=== PATIENT | female | born 1930 | race Caucasian/White ===

== ENCOUNTER → 2016-10-10 | Outpatient (CLI) | payer BC ==
[~2016-10-10] MED LIST: BUPR100T8 PO; CHOL1TAB2 PO; CLOTLOT2 TOP; DICL1GEL28 TOP; DORZ2SOL20 OPR; FLUT0.15 NAE; FRS/40 PO; GABA-113 PO; IBUP-103 PO; LEVO25TA5 PO; LORA-741 PO; METO50TA16 PO; POTA20TA16 PO; PRLSR20 PO; TRAV0.00 OPB; TRIA0.1C20 TOP; ULT50X PO
[2016-10-10 17:34] LABS: BLOOD UREA NITROGEN 23 mg/dl (7-18); BUN/CREATININE RATIO 16.6 (10-20); CALCIUM 9.1 mg/dl (8.5-10.1); CARBON DIOXIDE 26 mmol/L (21-32); CHLORIDE 107 mmol/L (98-107); GLUCOSE 86 mg/dl (70-99); POTASSIUM 3.7 mmol/L (3.5-5.1); SODIUM 143 mmol/L (136-145)
== END | disposition home or self-care (01) ==
LOC: C.LABPVFM 10:53
PROVIDERS: ATTEND Nurse Practitioner
DX: I10 Essential (primary) hypertension (principal); N28.9 Disorder of kidney and ureter, unspecified; E03.9 Hypothyroidism, unspecified

== ENCOUNTER → 2016-12-19 | Day surgery (SDC) | payer BC ==
[2016-12-02 11:25] VITALS: Ht 152.4 cm; Wt 72.7 kg
[~2016-12-19] VITALS: Ht 152.4 cm; Wt 72.7 kg
[~2016-12-19] MED LIST changes: +500ML BSS 0.3ML EPI 1:1000PF IRRIG ONE; +ACETAMINOPHEN 325 MG TAB PO PRN; +AMVISC PLAIN 0.8ML SYRINGE INT OCU ONE; +AMVISC PLUS 0.8ML SYRINGE INT OCU ONE; +ATROPINE SULFATE 0.1 MG/ML 5ML SYR IV PRN; -CLOTLOT2 TOP; -DICL1GEL28 TOP; +EpHEDrine SULFATE INJ 50 MG/ML AMP IV PRN; +EpINEphrine INJ 1MG/ML AMP 1 MG/ML AMP ONE; +FENTANYL CITRATE INJ 50 MCG/1 ML 2 ML VIAL IV PRN; +FLUMAZENIL 0.1 MG/1 ML 10 ML VIAL IV PRN; +HYDROmorphone INJ 2 MG/ML SYR/VIAL IV PRN; +LABETALOL HCL IV 5 MG/ML 20ML IV PRN; +LACTATED RINGER'S 1000ML 500 ML IV SCH; +LIDOCAINE 3.5% OPH GEL PER APPLICATION CHARGE ONE; +LIDOCAINE HCL 1% MPF 2 ML VIAL ONE; +MEPERIDINE HCL 25 MG/ML CARP IV PRN; +MIDAZOLAM HCL 1 MG/ML 2ML VIAL ONE; +NALOXONE HCL 0.4 MG/1 ML VIAL/CARP IV PRN; +OCUCOAT 1 ML SOLN IO ONE; +ONDANSETRON INJ 2 MG/ML 2 ML VIAL IV PRN; +PHENYLEPHRINE 100MCG/ML 5ML SYR IV PRN; +POVIDONE-IODINE OP SOLN 30 ML BTL ONE; +PROPARACAINE 0.5% OP SOLN PER DROP CHARGE OPR SCH; +TOBRAMYCIN/DEXAMETHASONE OPH OINT PER APPLN CHARGE ONE; -TRIA0.1C20 TOP
[2016-12-19] MEDS: PHENYLEPHRINE HCL 2.5% OP SOLN PER DROP CHARGE OPR SCH ×2 (07:29→07:36)
[2016-12-19] MEDS: TROPICAMIDE 1% OP SOLN PER DROP CHARGE OPR SCH ×2 (07:30→07:37)
[2016-12-19] MEDS: CYCLOPENTOLATE HCL 1% OP SOLN PER DROP CHARGE OPR SCH ×2 (07:31→07:38)
[2016-12-19] MEDS: KETOROLAC 0.5% OP SOLN PER DROP CHARGE OPR SCH ×2 (07:32→07:39)
[2016-12-19] MEDS: GATIFLOXACIN OP SOLN PER DROP CHARGE OPR SCH ×2 (07:33→07:45)
--- NOTE | 2016-12-19 07:58 | History & Physical Bridge - [place] ---
H&P Re-Evaluation Bridge Note: I have examined the patient, reviewed the History & Physical and in the interval since the performance of the History & Physical I have noted the following changes of clinical significance: No changes noted
--- NOTE | 2016-12-19 08:47 | [facility] Operative Report ---
Operative Report Date of Service December 19, 2016. Operative Report 1. PREOPERATIVE DIAGNOSIS: Cataract of the right eye. 2. POSTOPERATIVE DIAGNOSIS: Same. 3. PROCEDURE: Phacoemulsification with intraocular lens implantation of the right eye. SURGEON: Dr. Sterling Lynch. ANESTHESIA: Topical Lidocaine gel, 1% Non- Preserved intracameral Lidocaine, and monitored intravenous sedation. INDICATIONS FOR THE PROCEDURE: The patient is a 86 - year-old female with a history of cataract of the right eye causing significant visual impairment. The details of the proposed procedure were explained to the patient who asked appropriate questions and following discussion of all risks, benefits and alternatives agreed to have the procedure done. 4. OPERATION AND FINDINGS: DESCRIPTION OF PROCEDURE: After informed consent was obtained, the patient was brought to the Operating Room at the [facility]. The patient was placed in a supine position and then the right eye was prepped and draped in the usual sterile fashion for intraocular surgery. A drop of topical Lidocaine gel was placed in the operative eye. A wire lid speculum was then placed in the fornices. A corneal paracentesis was then created temporally. The Non-Preserved Lidocaine was then instilled into the anterior chamber. The anterior chamber was then pressurized with viscoelastic. A 2.0 mm clear corneal incision was then created temporally. A cystotome was inserted into the anterior chamber and used to create a tear in the anterior lens capsule. This capsular tear was then used to create a small flap and the flap was dragged in a counterclockwise direction in order to create a continuous curvilinear capsulorrhexis. Hydrodissection was accomplished with balanced salt solution. Phacoemulsification of the lens nucleus was then performed in a standard [id number] technique. The phaco time was 39 seconds with an average power of 16 %. The remaining cortical material was removed using irrigation aspiration. The capsular bag was then filled with viscoelastic. A [employer] MI60L +21.0 diopters lens was then loaded into the injector and injected into the capsular bag. The remaining viscoelastic was removed with the irrigation aspiration handpiece. The wound was hydrated and then checked and found to be watertight. The intraocular pressure was checked and found to be adequate. The wire lid speculum was removed and the patient's face was cleaned and dried. TobraDex ointment was placed in the inferior fornix. The patient was discharged to the Recovery Room having tolerated the procedure well. There were no complications. The patient will be seen tomorrow in the office for follow-up. I attest to the content of the Intraoperative Record and any orders documented therein. Any exceptions are noted below.
--- NOTE | 2016-12-19 08:47 | Discharge Instructions-SurgCtr ---
Discharge Instructions Date of Service December 19, 2016. Visit Reason for Visit: Cataract Right Eye Discharge Discharge Diagnosis / Problem: cataract Discharge Goals Goal(s): Improve function Activity Recommendations Activity Limitations: per Instructions/Follow-up section Anesthesia . Post Anesthesia Instructions: If you have had General Anesthesia or IV Sedation: * Do not drive today. * Resume driving when surgeon permits. * Do not make important decisions or sign legal documents today. * Call surgeon for: 1. Temperature elevations greater than 101 degrees F. 2. Uncontrollable pain. 3. Excessive bleeding. 4. Persistent nausea and vomiting. 5. Medication intolerance (nausea, vomiting or rash). * For nausea and vomiting use only clear liquids such as: tea, soda, bouillon until nausea subsides, then gradually increase diet as tolerated. * If you have any concerns or questions, call your surgeon's office. If physician is unavailable and it is an emergency, call 911 or go to the nearest emergency room. . Instructions / Follow-Up Instructions / Follow-Up ACTIVITY RECOMMENDATIONS: * No strenuous lifting, jogging or running for 4 days * No swimming or yard work for 1 week. * Limited bending is permitted, such as putting on shoes. RETURN TO SCHOOL/WORK: No work until seen by physician in office. MEDICATIONS: Resume previous medications unless instructed otherwise by your surgeon. This includes eye drops for glaucoma. Zymaxid/Gatifloxacin (alvarado cap) - one drop every 2 hours until bedtime Nevanac/Ilevro/Prolensa/Ketorolac (goss cap) - one drop every 4 hours until bedtime Prednisolone (white/pink cap, SHAKE WELL) - one drop every 2 hours until bedtime Starting tomorrow - all 3 drops every 4 hours until seen in the office Optive drops - as needed for discomfort SPECIAL CARE INSTRUCTIONS: * Wear eyeshield when sleeping, for four nights. * You may wear your own glasses or sunglasses while awake. * You may read or watch TV * You may shower and wash your face, but be gentle around the eye and pat dry. * Blurry vision and mild irritation are normal. * Call office if pain is more severe or vision becomes dark at . FOLLOW UP VISIT: Follow-up with Dr Lynch tomorrow. Diet Recommendations Home Diet: resume previous diet Procedures Procedures Performed: Right Cataract Phacoemulsification With Intraocular Lens Implant Pending Studies Studies pending at discharge: no Medical Emergencies . Who to Call and When: Medical Emergencies: If at any time you feel your situation is an emergency, please call 911 immediately. . Non-Emergent Contact Non-Emergency issues call your: Drupal Developer . . "Provider Documentation" section prepared by Sterling Lynch. .
[2016-12-19 08:49] VITALS: TEMP 36.5
--- NOTE | 2016-12-19 09:04 | Anesthesia Progress Nt - [facility] ---
Anesthesia Post Op Note Date & Time December 19, 2016 at 09:05 Vital Signs Pain Intensity: 0 Vital Signs Past 12 Hours Date Time Temp Pulse Resp B/P Pulse Ox O2 Delivery O2 Flow Rate FiO2 12/19/16 08:49 36.5 60 16 137/84 98 Room Air 12/19/16 07:20 36.7 66 20 156/75 95 Room Air Notes Mental Status: alert / awake / arousable, participated in evaluation Pt Amnestic to Procedure: Yes Nausea / Vomiting: adequately controlled Pain: adequately controlled Airway Patency, RR, SpO2: stable & adequate BP & HR: stable & adequate Hydration State: stable & adequate Anesthetic Complications: no major complications apparent
[2016-12-19 09:06] VITALS: BP 140/84; PULSE 61; O2SAT 96
== END | disposition home or self-care (01) ==
LOC: X.SURG 07:04
PROVIDERS: ATTEND Ophthalmology
DX: H25.9 Unspecified age-related cataract (principal); I10 Essential (primary) hypertension; F41.9 Anxiety disorder, unspecified; K21.9 Gastro-esophageal reflux disease without esophagitis; E03.9 Hypothyroidism, unspecified; E55.9 Vitamin D deficiency, unspecified; F32.9 Major depressive disorder, single episode, unspecified; G62.9 Polyneuropathy, unspecified; R60.9 Edema, unspecified; Z79.899 Other long term (current) drug therapy

== ENCOUNTER 2017-02-23 14:24 | Observation (INO) | payer BC ==
[~2017-02-23] VITALS: Ht 152.4 cm; Wt 74.7 kg
[~2017-02-23 14:24] MED LIST changes: -500ML BSS 0.3ML EPI 1:1000PF IRRIG ONE; -ACETAMINOPHEN 325 MG TAB PO PRN; -AMVISC PLAIN 0.8ML SYRINGE INT OCU ONE; -AMVISC PLUS 0.8ML SYRINGE INT OCU ONE; -ATROPINE SULFATE 0.1 MG/ML 5ML SYR IV PRN; -EpHEDrine SULFATE INJ 50 MG/ML AMP IV PRN; -EpINEphrine INJ 1MG/ML AMP 1 MG/ML AMP ONE; -FENTANYL CITRATE INJ 50 MCG/1 ML 2 ML VIAL IV PRN; -FLUMAZENIL 0.1 MG/1 ML 10 ML VIAL IV PRN; -HYDROmorphone INJ 2 MG/ML SYR/VIAL IV PRN; -LABETALOL HCL IV 5 MG/ML 20ML IV PRN; -LACTATED RINGER'S 1000ML 500 ML IV SCH; -LIDOCAINE 3.5% OPH GEL PER APPLICATION CHARGE ONE; -LIDOCAINE HCL 1% MPF 2 ML VIAL ONE; -MEPERIDINE HCL 25 MG/ML CARP IV PRN; -MIDAZOLAM HCL 1 MG/ML 2ML VIAL ONE; -NALOXONE HCL 0.4 MG/1 ML VIAL/CARP IV PRN; -OCUCOAT 1 ML SOLN IO ONE; -ONDANSETRON INJ 2 MG/ML 2 ML VIAL IV PRN; -PHENYLEPHRINE 100MCG/ML 5ML SYR IV PRN; -POVIDONE-IODINE OP SOLN 30 ML BTL ONE; -PROPARACAINE 0.5% OP SOLN PER DROP CHARGE OPR SCH; -TOBRAMYCIN/DEXAMETHASONE OPH OINT PER APPLN CHARGE ONE; -ULT50X PO
[2017-02-23] MEDS ORDERED: KETOROLAC TROMETHAMINE 30 MG/ML VIAL IV STA (14:40)
--- NOTE | 2017-02-23 14:47 | EMERGENCY ROOM VISIT NOTE ---
History Report prepared by Itzel: Juan Jose Jeter Under the Supervision of: Dr. Darvin Tesfaye M.D. First contact with patient: 14:30 Stated Complaint: UPPER BACK PAIN History of Present Illness The patient is a 87 year old female who presents to the Emergency Room via EMS with complaints of back pain that began prior to arrival. She rates her pain a 10/10 in severity. Before her arrival to the ER, she was bending over to flower picker a bug off of the floor. She sat down on the ground and rolled back onto her radiator, striking her in the back. She was only on the floor for 15 minutes after that before EMS arrived. She denies any loss of consciousness, headache, fever, chest pain, shortness of breath, abdominal pain, diarrhea, or weakness. She felt at baseline prior to this incident. She is not on any blood thinners. She does not have any medical problems. Source of History: patient Onset: RN VASCULAR Position: back Symptom Intensity: 10/10 Quality: sharp Timing: constant Modifying Factors (Worsening): movement Associated Symptoms: No LOC, No fevers, No headache, No chest pain, No SOB, No abdominal pain, No diarrhea, No weakness Review of Systems See HPI for pertinent positives & negatives. A total of 10 systems reviewed and were otherwise negative. Past Medical & Surgical Medical Problems: (1) Gait abnormality (2) Lower back pain (3) No pertinent past medical history (4) omitted secondary to age Old medical records were reviewed. Nurse's notes were reviewed and I agree with. Family History Omitted secondary to age Social History Smoking Status: Never Smoker Smokeless Tobacco Use: No Alcohol Use: none Drug Use: none Marital Status: Housing Status: lives alone Occupation Status: retired Current/Historical Medications Scheduled Bupropion (Wellbutrin Sr), 100 MG PO BID Cholecalciferol (Vitamin D-3), 1,000 PO QAM Dorzolamide Hcl-Timolol Maleat (Cosopt Oph), 1 DROPS OPR BID Furosemide (Lasix), 40 MG PO DAILY Gabapentin (Neurontin), 300 MG PO BID Levothyroxine Sodium (Levothyroxine Sodium), 25 MCG PO QAM Metoprolol Tartrate (Lopressor) (Lopressor), 50 MG PO BID Potassium Ext Rel (Klor-Con), 20 MEQ PO Q2D Travoprost (Travatan Z), 1 DROP OPB HS Scheduled PRN Fluticasone Propionate (Nasal) (Flonase Allergy Relief), 1 SPRAY JENNIFER BID PRN for Allergy Symptoms Lorazepam (Ativan), 0.5 MG PO TID PRN for Anxiety Omeprazole (Prilosec), 20 MG PO DAILY PRN for Acid Reflux Allergies Coded Allergies: Codeine (Verified Adverse Reaction, Mild, NAUSEA VOMITING, 12/02/16) Erythromycin (Verified Adverse Reaction, Mild, N/V, 12/02/16) Physical Exam Vital Signs Date Time Temp Pulse Resp B/P (MAP) Pulse Ox O2 Delivery O2 Flow Rate FiO2 02/23/17 19:38 58 18 151/70 94 02/23/17 17:42 60 18 165/71 100 Nasal Cannula 2.0 02/23/17 17:10 94 Room Air 02/23/17 14:35 58 02/23/17 14:34 37.1 69 18 166/84 94 Room Air Physical Exam General: Well developed well nourished non-ill appearing older female in no acute distress, breathing comfortably on room air. Normal speech HEENT: Normal cephalic atraumatic. Pupils are equal round and reactive to light. Extraocular movements are intact. Oropharynx is pink with moist mucous membranes. No swelling of the mouth lips or tongue. Neck: Supple with a midline trachea. No meningeal signs or stiffness, no JVD or bruits. No Stridor. Chest: Clear to auscultation bilaterally. No wheezes or rhonchi. No increased work of breathing. Heart: regular rate and rhythm. Abdomen: Soft nontender, nondistended without rebound guarding or rigidity. Extremities: No cyanosis clubbing. No calf tenderness or assymetry. 1+ bilateral lower extremity edema. Abrasions on the right forearm. Spine/Back. Tenderness to the right flank. No CVA tenderness Skin: Good turgor without rashes. Neurologic exam: Cranial nerves two through 12 are intact. Motor and sensation are intact and symmetrical throughout. Medical Decision & Procedures ER Provider Diagnostic Interpretation: Radiology results as stated below per my review and radiologist interpretation: LUMBAR SPINE WITHOUT CT DOSE: 932.23 mGy.cm HISTORY: Trauma eval for trauma TECHNIQUE: Multiaxial CT images of the lumbar spine were performed and reformatted in the sagittal and coronal plane without the use of contrast. COMPARISON: MRI 09/08/2009 FINDINGS: Mild increase in compression of the L2 vertebral body compared to the prior exam. Posterior retropulsion of the posterior margin of the vertebral body has increased. Maximum AP dimension is 6 mm currently with the prior study 7.5 mm. Interval vertebral plasty. Loss of vertebral body height is now estimated approximately 75%. Remaining vertebral bodies appear similar. Grade 1 anterolisthesis of L4 and L5 is again noted with an associated vacuum disc. Posterior elements show degenerative change but are generally intact. IMPRESSION: 1. Somewhat progressive compression deformity of L2 compared to the prior study 2. Loss of vertebral body height is now estimated 75% increase from 50% on the prior study. 3. Interval vertebroplasty. 4. Increase in posterior displacement of the posterior margin of the L2 vertebral body with residual spinal canal lumen now measuring 6 mm diminished from the prior study of 7.5 mm The above report was generated using voice recognition software. It may contain grammatical, syntax or spelling errors. Electronically signed by: Michel Mann M.D. 02/23/2017 3:41 PM Dictated Date/Time: 02/23/2017 3:32 PM CHEST ONE VIEW PORTABLE CLINICAL HISTORY: CHEST PAIN dyspnea COMPARISON STUDY: 04/07/2015 FINDINGS: Moderate increase in cardiac size compared to the prior study. Components of congestive failure are present. Diaphragms are smooth. Considerable degenerative change of the right shoulder is again noted. IMPRESSION: Developing congestive heart failure The above report was generated using voice recognition software. It may contain grammatical, syntax or spelling errors. Electronically signed by: Michel Mann M.D. 02/23/2017 3:03 PM Dictated Date/Time: 02/23/2017 3:03 PM ABD/PELVIS NO IV OR ORAL CONT CT DOSE: HISTORY: Posterior back pain right flank pain s/p fall TECHNIQUE: Multiaxial CT images of the abdomen and pelvis were performed without contrast. COMPARISON STUDY: None FINDINGS: Minimal dependent basilar atelectasis bilaterally liver spleen and pancreas are unremarkable. There is a small fixed lateral hernia is multiple gallstones are present within the gallbladder lumen. Moderate cortical scarring of the kidneys bilaterally. Fatty replacement of the pancreas. The bowel pattern overall is nonobstructive. Bladder is midline. The appendix is normal. Degenerative change of the osseous structures are noted throughout. Compression deformity of L2 has shown mild progression compared to the prior study. IMPRESSION: 1. Moderate interval increase in compression of L2 which is described specifically in that report. 2. Gallstones. 3. Otherwise no acute process of the abdomen or pelvis. 4. Small hiatal hernia. The above report was generated using voice recognition software. It may contain grammatical, syntax or spelling errors. Electronically signed by: Michel Mann M.D. 02/23/2017 3:44 PM Dictated Date/Time: 02/23/2017 3:41 PM Laboratory Results 02/23/17 15:46 Red Blood Count 4.26, Mean Corpuscular Volume 82.6, Mean Corpuscular Hemoglobin 25.4, Mean Corpuscular Hemoglobin Concent 30.7, Mean Platelet Volume 10.1, Neutrophils (%) (Auto) 85.6, Lymphocytes (%) (Auto) 6.9, Monocytes (%) (Auto) 6.5, Eosinophils (%) (Auto) 0.0, Basophils (%) (Auto) 0.1, Neutrophils # (Auto) 11.00, Lymphocytes # (Auto) 0.88, Monocytes # (Auto) 0.83, Eosinophils # (Auto) 0.00, Basophils # (Auto) 0.01 02/23/17 17:30 Test 02/23/17 15:46 02/23/17 17:30 02/23/17 19:32 White Blood Count 12.83 K/uL (4.8-10.8) Red Blood Count 4.26 M/uL (4.2-5.4) Hemoglobin 10.8 g/dL (12.0-16.0) Hematocrit 35.2 % (37-47) Mean Corpuscular Volume 82.6 fL (80-100) Mean Corpuscular Hemoglobin 25.4 pg (25-34) Mean Corpuscular Hemoglobin Concent 30.7 g/dl (32-36) Platelet Count 215 K/uL (130-400) Mean Platelet Volume 10.1 fL (7.4-10.4) Neutrophils (%) (Auto) 85.6 % Lymphocytes (%) (Auto) 6.9 % Monocytes (%) (Auto) 6.5 % Eosinophils (%) (Auto) 0.0 % Basophils (%) (Auto) 0.1 % Neutrophils # (Auto) 11.00 K/uL (1.4-6.5) Lymphocytes # (Auto) 0.88 K/uL (1.2-3.4) Monocytes # (Auto) 0.83 K/uL (0.11-0.59) Eosinophils # (Auto) 0.00 K/uL (0-0.5) Basophils # (Auto) 0.01 K/uL (0-0.2) RDW Standard Deviation 51.3 fL (36.4-46.3) RDW Coefficient of Variation 17.2 % (11.5-14.5) Immature Granulocyte % (Auto) 0.9 % Immature Granulocyte # (Auto) 0.11 K/uL (0.00-0.02) Anion Gap 8.0 mmol/L (3-11) Est Creatinine Clear Calc Drug Dose 30.4 ml/min Estimated GFR () 47.4 Estimated GFR (Non- 40.9 BUN/Creatinine Ratio 26.8 (10-20) Calcium Level 9.1 mg/dl (8.5-10.1) Total Bilirubin 0.4 mg/dl (0.2-1) Direct Bilirubin 0.2 mg/dl (0-0.2) Aspartate Amino Transf (AST/SGOT) 17 U/L (15-37) Alanine Aminotransferase (ALT/SGPT) 19 U/L (12-78) Alkaline Phosphatase 68 U/L (45-117) Total Creatine Kinase 55 U/L (26-192) Creatine Kinase MB < 0.5 ng/ml (0.5-3.6) Creatine Kinase MB Ratio (0-3.0) Total Protein 6.3 gm/dl (6.4-8.2) Albumin 2.8 gm/dl (3.4-5.0) Lipase 80 U/L (73-393) Laboratory studies as stated above per my review. Medications Administered Medications (Trade) Dose Ordered Sig/Zulema Route Start Time Stop Time Status Last Admin Dose Admin Ketorolac Tromethamine (Toradol Inj) 15 mg NOW STAT IV 02/23/17 14:40 02/23/17 14:44 DC 02/23/17 15:52 15 MG Morphine Sulfate (MoRPHine SULFATE INJ) 2 mg NOW STAT IV 02/23/17 16:11 02/23/17 16:13 DC 02/23/17 16:27 2 MG Ondansetron HCl (Zofran Inj) 4 mg NOW STAT IV 02/23/17 16:11 02/23/17 16:13 DC 02/23/17 16:27 4 MG ED Course 1430: Past medical records reviewed. The patient was evaluated in room A3, and a complete history and physical examination were performed. 1440: Ordered Toradol Inj 15 mg IV 1606: The patient is still having back pain. I will order her more pain medication. 1611: Ordered Zofran Inj 4 mg IV, Morphine Sulfate 2 mg IV 1635: Upon reevaluation, the patient is resting. I discussed the results and treatment plan with the patient. She verbalized agreement of the treatment plan. The patient will be evaluated by Dr. Ventura - [facility] [place], for further management. Medical Decision Differentials include, but are not limited to; traumatic injuries, arrhythmia, rhabdomyolysis, and electrolyte or metabolic abnormality. Medication Reconciliation: I attest that I have personally reviewed the patient' s current medication list. Blood pressure Screening: Patient was found to have normal blood pressure on screening and does not require follow-up. This patient comes in as described above she had a mechanical fall today. She injured her right lateral back/flank. She said she sat down and leaned up against a radiator for about 15 minutes. It was not on. She denies any syncope or head trauma, chest pain, or shortness of breath. She does live by herself and seems a lot of pain with movement. IV access established was ordered Toradol 15 mg IV. Blood work was obtained as well as an EKG. I did chest x-ray as well as CAT scan of her abdomen pelvis and back. She was reassessed frequently. She did require additional pain medication was given morphine IV and Zofran IV. CAT scan of her abdomen and back do reveal a compression fracture that looks worse than previous on L2 there is some retropulsion. She has no neurologic deficits on exam and her chest x-ray suggests congestive heart failure and she does have some peripheral edema. She does take Lasix but did not take it today. She has no shortness of breath clinically. She lives by herself and is unable to ambulate like this. I do think she needs to be admitted for pain management and further treatment and evaluation. I have consulted Dr. Jenkins and he saw her in the emergency department. Consults Time Called: [phone] Consulting Physician: Dr. Lorenzo MORELANDG Returned Call: [phone] He will be evaluating the patient for further management and care. Impression Primary Impression: Back pain Additional Impressions: Compression fracture of L2 CHF (congestive heart failure) Scribe Attestation The scribe's documentation has been prepared under my direction and personally reviewed by me in its entirety. I confirm that the note above accurately reflects all work, treatment, procedures, and medical decision making performed by me. Departure Information Dispostion Being Evaluated By Hospitalist Referrals Alecia Garcia C.R.N.P (PCP) Problem Qualifiers
--- NOTE | 2017-02-23 15:04 | DIAGNOSTIC IMAGING REPORT ---
CHEST ONE VIEW PORTABLE CLINICAL HISTORY: CHEST PAIN dyspnea COMPARISON STUDY: 04/07/2015 FINDINGS: Moderate increase in cardiac size compared to the prior study. Components of congestive failure are present. Diaphragms are smooth. Considerable degenerative change of the right shoulder is again noted. IMPRESSION: Developing congestive heart failure The above report was generated using voice recognition software. It may contain grammatical, syntax or spelling errors. Electronically signed by: Michel Mann M.D. 02/23/2017 3:03 PM Dictated Date/Time: 02/23/2017 3:03 PM
--- NOTE | 2017-02-23 15:42 | DIAGNOSTIC IMAGING REPORT ---
LUMBAR SPINE WITHOUT CT DOSE: 932.23 mGy.cm HISTORY: Trauma eval for trauma TECHNIQUE: Multiaxial CT images of the lumbar spine were performed and reformatted in the sagittal and coronal plane without the use of contrast. COMPARISON: MRI 09/08/2009 FINDINGS: Mild increase in compression of the L2 vertebral body compared to the prior exam. Posterior retropulsion of the posterior margin of the vertebral body has increased. Maximum AP dimension is 6 mm currently with the prior study 7.5 mm. Interval vertebral plasty. Loss of vertebral body height is now estimated approximately 75%. Remaining vertebral bodies appear similar. Grade 1 anterolisthesis of L4 and L5 is again noted with an associated vacuum disc. Posterior elements show degenerative change but are generally intact. IMPRESSION: 1. Somewhat progressive compression deformity of L2 compared to the prior study 2. Loss of vertebral body height is now estimated 75% increase from 50% on the prior study. 3. Interval vertebroplasty. 4. Increase in posterior displacement of the posterior margin of the L2 vertebral body with residual spinal canal lumen now measuring 6 mm diminished from the prior study of 7.5 mm The above report was generated using voice recognition software. It may contain grammatical, syntax or spelling errors. Electronically signed by: Michel Mann M.D. 02/23/2017 3:41 PM Dictated Date/Time: 02/23/2017 3:32 PM
--- NOTE | 2017-02-23 15:45 | DIAGNOSTIC IMAGING REPORT ---
ABD/PELVIS NO IV OR ORAL CONT CT DOSE: HISTORY: Posterior back pain right flank pain s/p fall TECHNIQUE: Multiaxial CT images of the abdomen and pelvis were performed without contrast. COMPARISON STUDY: None FINDINGS: Minimal dependent basilar atelectasis bilaterally liver spleen and pancreas are unremarkable. There is a small fixed lateral hernia is multiple gallstones are present within the gallbladder lumen. Moderate cortical scarring of the kidneys bilaterally. Fatty replacement of the pancreas. The bowel pattern overall is nonobstructive. Bladder is midline. The appendix is normal. Degenerative change of the osseous structures are noted throughout. Compression deformity of L2 has shown mild progression compared to the prior study. IMPRESSION: 1. Moderate interval increase in compression of L2 which is described specifically in that report. 2. Gallstones. 3. Otherwise no acute process of the abdomen or pelvis. 4. Small hiatal hernia. The above report was generated using voice recognition software. It may contain grammatical, syntax or spelling errors. Electronically signed by: Michel Mann M.D. 02/23/2017 3:44 PM Dictated Date/Time: 02/23/2017 3:41 PM
[2017-02-23 16:02] LABS: BASO % 0.1 %; BASO ABS # 0.01 K/uL (0-0.2); COMPLETE YES; HEMATOCRIT 35.2 % (37-47); IG% 0.9 %; LYMPH % 6.9 %; LYMPH ABS # 0.88 K/uL (1.2-3.4); MEAN CELL VOLUME 82.6 fL (80-100); MEAN CORPUSCULAR HEMOGLOBIN 25.4 pg (25-34); MEAN CORPUSCULAR HGB CONC 30.7 g/dl (32-36); MEAN PLATELET VOLUME 10.1 fL (7.4-10.4); MONO % 6.5 %; NEUT % 85.6 %; PLATELET COUNT 215 K/uL (130-400); RED BLOOD COUNT 4.26 M/uL (4.2-5.4); WHITE BLOOD COUNT 12.83 K/uL (4.8-10.8)
[2017-02-23] MEDS ORDERED: MoRPHine SULFATE 2 MG/ML CARP IV STA (16:11)
[2017-02-23] MEDS ORDERED: ONDANSETRON INJ 2 MG/ML 2 ML VIAL IV STA (16:11)
[2017-02-23 17:10] VITALS: O2SAT 94; Ht 152.4 cm; Wt 74.7 kg
[2017-02-23 18:10] LABS: ALKALINE PHOSPHATASE 68 U/L (45-117); ALT/SGPT 19 U/L (12-78); AST/SGOT 17 U/L (15-37); BLOOD UREA NITROGEN 32 mg/dl (7-18); BUN/CREATININE RATIO 26.8 (10-20); CALCIUM 9.1 mg/dl (8.5-10.1); CARBON DIOXIDE 28 mmol/L (21-32); CHLORIDE 107 mmol/L (98-107); GLUCOSE 77 mg/dl (70-99); POTASSIUM 3.7 mmol/L (3.5-5.1); SODIUM 143 mmol/L (136-145)
[2017-02-23] MEDS ORDERED: POLYETHYLENE (MIRALAX) 17 GM PACK PO PRN (18:15)
[2017-02-23] MEDS ORDERED: MAGNESIUM HYDROXIDE SUSP 30 ML UDC PO PRN (18:15)
[2017-02-23] MEDS ORDERED: FLUTICASONE PROPIONATE NA SPR 16 GM BTL NAE PRN (18:15)
[2017-02-23] MEDS ORDERED: PANTOprazole SOD 40 MG TAB PO PRN (18:15)
[2017-02-23] MEDS ORDERED: ACETAMINOPHEN 325 MG TAB PO PRN (18:15)
[2017-02-23] MEDS ORDERED: ONDANSETRON INJ 2 MG/ML 2 ML VIAL IV PRN (18:15)
[2017-02-23] MEDS ORDERED: ALUMINUM/MAGNESIUM/SIMETH (MAALOX MAX) 30 ML UDC PO PRN (18:15)
--- NOTE | 2017-02-23 18:46 | History and Physical ---
History & Physical Date & Time of Service: Feb 23, 2017 at 18:05 Chief Complaint: Upper Back Pain Primary Care Physician: Alecia Garcia C.R.N.P History of Present Illness Source: patient 87 y/o F Hx osteoarthritis, CHF, HTN. Pt fell on her backside today, could not get up and proceeded to alert EMS. On arrival to the ER, she was unable to ambulate independently. Her lower back pain persists and a lumbar CT reveals worsening of a chronic compression fracture at L2. She denies any head trauma or additional symptoms preceding her fall such as CP, SOB, palpitations and lightheadedness. She states that this past Friday she had been to see her orthopedist who administered injections - possibly steroids - into her shoulder joints bilaterally. Past Medical/Surgical History 1) CHF - no specifics available 2) HTN 3) Depression/anxiety 4) Severe osteoarthritis 5) Glaucoma 6) GERD Surgical TKR 2002 Cataract 12/25 Family History Omitted secondary to age Social History Smoking Status: Never Smoker Smokeless Tobacco Use: No Drug Use: none Marital Status: Housing status: lives with family Occupational Status: retired Immunizations History of Influenza Vaccine: Yes Influenza Vaccine Date: May 18, 2009 History of Tetanus Vaccine?: Unknown History of Pneumococcal: Yes History of Hepatitis B Vaccine: No Multi-Drug Resistant Organisms History of MDRO: No Allergies Coded Allergies: Codeine (Verified Adverse Reaction, Mild, NAUSEA VOMITING, 12/02/16) Erythromycin (Verified Adverse Reaction, Mild, N/V, 12/02/16) Home Medications Scheduled Bupropion (Wellbutrin Sr), 100 MG PO BID Cholecalciferol (Vitamin D-3), 1,000 PO QAM Dorzolamide Hcl-Timolol Maleat (Cosopt Oph), 1 DROPS OPR BID Furosemide (Lasix), 40 MG PO DAILY Gabapentin (Neurontin), 300 MG PO BID Levothyroxine Sodium (Levothyroxine Sodium), 25 MCG PO QAM Metoprolol Tartrate (Lopressor) (Lopressor), 50 MG PO BID Potassium Ext Rel (Klor-Con), 20 MEQ PO Q2D Travoprost (Travatan Z), 1 DROP OPB HS Scheduled PRN Fluticasone Propionate (Nasal) (Flonase Allergy Relief), 1 SPRAY JENNIFER BID PRN for Allergy Symptoms Lorazepam (Ativan), 0.5 MG PO TID PRN for Anxiety Omeprazole (Prilosec), 20 MG PO DAILY PRN for Acid Reflux Review of Systems Constitutional: No fever, No chills, No sweats Eyes: No worsening of vision ENT: No hearing loss, No unusual epistaxis, No nasal symptoms Respiratory: No cough, No sputum, No wheezing Cardiovascular: No chest pain, No orthopnea, No PND Abdomen: No pain, No nausea, No vomiting Musculoskeletal: + problem reported (moderate to severe LBP with ambulation), No joint pain Genitourinary - Female: No dysuria, No urinary frequency, No urinary urgency Neurologic: No memory loss, No paralysis, No weakness Psychiatric: No depression symptoms Endocrine: No fatigue Integumentary: No rash Allergic / Immunologic: No environmental allergies Physical Exam Vital Signs Date Time Temp Pulse Resp B/P (MAP) Pulse Ox O2 Delivery O2 Flow Rate FiO2 02/23/17 17:42 60 18 165/71 100 Nasal Cannula 2.0 02/23/17 17:10 94 Room Air 02/23/17 14:35 58 02/23/17 14:34 37.1 69 18 166/84 94 Room Air General Appearance: WD/WN, no apparent distress Head: normocephalic Eyes: normal inspection ENT: + pertinent finding (Very poor dentition) Neck: supple, no JVD Respiratory/Chest: chest non-tender, lungs clear, normal breath sounds Cardiovascular: regular rate, rhythm, no gallop, no JVD, + systolic murmur (3/6 ) Abdomen/GI: normal bowel sounds, non tender, soft Back: + pertinent finding (Severe kyphosis) Extremities/Musculoskelatal: + pedal edema, + pertinent finding (moderate to sevevre osteoarthritic deformaties distally) Neurologic/Psych: tie worker II-XII nml as tested, no motor/sensory deficits, alert, + pertinent finding (AAO x 2) Skin: normal color, warm/dry, no rash Diagnostics Laboratory Results Results Past 24 Hours Test 02/23/17 14:40 02/23/17 15:46 02/23/17 17:30 Range/Units Creatine Kinase MB Ratio 0-3.0 White Blood Count 12.83 4.8-10.8 K/uL Red Blood Count 4.26 4.2-5.4 M/uL Hemoglobin 10.8 12.0-16.0 g/dL Hematocrit 35.2 37-47 % Mean Corpuscular Volume 82.6 80-100 fL Mean Corpuscular Hemoglobin 25.4 25-34 pg Mean Corpuscular Hemoglobin Concent 30.7 32-36 g/dl Platelet Count 215 130-400 K/uL Mean Platelet Volume 10.1 7.4-10.4 fL Neutrophils (%) (Auto) 85.6 % Lymphocytes (%) (Auto) 6.9 % Monocytes (%) (Auto) 6.5 % Eosinophils (%) (Auto) 0.0 % Basophils (%) (Auto) 0.1 % Neutrophils # (Auto) 11.00 1.4-6.5 K/uL Lymphocytes # (Auto) 0.88 1.2-3.4 K/uL Monocytes # (Auto) 0.83 0.11-0.59 K/uL Eosinophils # (Auto) 0.00 0-0.5 K/uL Basophils # (Auto) 0.01 0-0.2 K/uL RDW Standard Deviation 51.3 36.4-46.3 fL RDW Coefficient of Variation 17.2 11.5-14.5 % Immature Granulocyte % (Auto) 0.9 % Immature Granulocyte # (Auto) 0.11 0.00-0.02 K/uL Diagnostic Radiology CT 1. Moderate interval increase in compression of L2 which is described specifically in that report. 2. Gallstones. Impression Assessment and Plan 87 y/o F Hx osteoarthritis, CHF, HTN. Pt fell on her backside today, could not get up and proceeded to alert EMS. On arrival to the ER, she was unable to ambulate independently. Her lower back pain persists and a lumbar CT reveals worsening of a chronic compression fracture at L2. 1) Back pain with ambulatory dysfunction - the pt lives alone and cannot now function independently. We will have her evaluated by her orthopedist in addition to PT/OT as she may need transfer to acute rehab. She does not have significant pain unless she attempts to mobilize. 2) CHF - severe lower extremity edema - she takes Lasix PRN only so that we will start her on a scheduled dose. She may not tolerate wrapping and elevation although this can be done with assistance at a facility. 3) Hypothyroidism - cont Synthroid 4) HTN - cont Metoprolol Majority of labs and UA pending at time of admission Full code - Heparin prophylaxis Total time for this admit including review of labs, meds, imaging, records - discussion with pt and ER attending - 33 min Level of Care Med/Surg Advanced Directives Existing Living Will: Yes Existing Power of Gauge Operator: Yes Resuscitation Status FULL RESUSCITATION VTE Prophylaxis Given or contraindicated: Unfractionated heparin SQ
[2017-02-23] MEDS ORDERED: IV FLUIDS COMPLETED PRN (19:15)
[2017-02-23 19:45] VITALS: BP 151/67; PULSE 57; TEMP 37; O2SAT 92
[2017-02-23 19:50] LABS: PROTHROMBIN TIME (PATIENT) 10.5 SECONDS (9.0-12.0)
[2017-02-23] MEDS ORDERED: POTASSIUM CHLORIDE 20 MEQ TABCR PO SCH (20:00)
[2017-02-23 20:44] LABS: MANUAL MICROSCOPIC REQUIRED? NO; REVIEW REQ? NO; URINE APPEARANCE CLEAR (CLEAR); URINE BILIRUBIN NEG (NEG); URINE COLOR YELLOW; URINE EPITHELIAL CELL AUTO 20-30 /lpf (0-5); URINE NITRITE NEG (NEG); URINE PH 6.5 (4.5-7.5); URINE SPECIFIC GRAVITY 1.013 (1.000-1.030); UROBILINOGEN NEG (NEG)
[2017-02-23] MEDS: TRAVOPROST Z 0.004% OPH SOLN 2.5 ML BTL OPB SCH (20:44)
[2017-02-23] MEDS: DORZOLAMIDE/TIMOLOL 22.3/6.8MG/ML 10 ML BTL OPR SCH ×2 (20:45→21:00)
[2017-02-23] MEDS: BuPROPion SR 100 MG TABCR PO SCH (20:48)
[2017-02-23] MEDS: METOPROLOL TARTRATE 50 MG TAB PO SCH (20:48)
[2017-02-23] MEDS: GABAPENTIN 300 MG CAP PO SCH (20:48)
[2017-02-23] MEDS: HEPARIN SOD 5000 UNIT/0.5 ML CARP SQ SCH (21:45)
[2017-02-23] MEDS: TRAMADOL HCL 50 MG TAB PO PRN (21:56)
[2017-02-23] MEDS ORDERED: NYSTATIN POWDER 15GM BTL EXT ONE (22:07)
[2017-02-23 22:44] VITALS: BP 123/74; PULSE 56; TEMP 36.5; O2SAT 95
[2017-02-24] VITALS (8 sets, daily range): BP systolic 96–136; BP diastolic 65–83; PULSE 57–84; TEMP 36.3–36.7; O2SAT 89–99
[2017-02-24] MEDS: LEVOTHYROXINE 25 MCG TAB PO SCH (05:34)
[2017-02-24] MEDS: HEPARIN SOD 5000 UNIT/0.5 ML CARP SQ SCH ×3 (05:34→21:44)
[2017-02-24] MEDS: METOPROLOL TARTRATE 50 MG TAB PO SCH ×2 (09:00→20:36)
[2017-02-24] MEDS: CHOLECALCIFEROL 1000 INTER.UNIT TAB PO SCH (09:21)
[2017-02-24] MEDS: BuPROPion SR 100 MG TABCR PO SCH ×2 (09:21→20:35)
[2017-02-24] MEDS: GABAPENTIN 300 MG CAP PO SCH ×2 (09:21→20:35)
[2017-02-24] MEDS: FUROSEMIDE 40 MG TAB PO SCH (09:22)
[2017-02-24] MEDS: DORZOLAMIDE/TIMOLOL 22.3/6.8MG/ML 10 ML BTL OPR SCH ×2 (09:23→20:35)
[2017-02-24] MEDS: TRAMADOL HCL 50 MG TAB PO PRN ×2 (09:23→13:52)
[2017-02-24] MEDS: NYSTATIN POWDER 15GM BTL EXT SCH ×4 (09:23→20:33)
--- NOTE | 2017-02-24 12:20 | Orthopedic Consultation ---
Orthopedic Consultation Date of Consultation: Feb 24, 2017. Attending Physician: Franko Tom MD Reason for Consultation: Lower back pain status post fall and inability to ambulate. History of Present Illness This is a pleasant 87-year-old female who sustained a fall yesterday at her home. She normally ambulates with a walker. He was unable to get up on her own therefore called EMS and was transported to the emergency room for further evaluation. Upon examination today she denies radicular leg pain. She notes her chronic back pain. This reproduces all positions including standing, sitting, rolling over. She is most comfortable lying supine. Denies bowel or bladder changes. She reports she has had prior vertebral plasty by Dr. Clements 10+ years ago. Past Medical/Surgical History Medical Problems: (1) Back pain Status: Acute (2) CHF (congestive heart failure) Status: Acute (3) Compression fracture of L2 Status: Acute Family History Omitted secondary to age Social History Smoking Status: Never Smoker Smokeless Tobacco Use: No Drug Use: none Marital Status: Housing Status: lives alone Occupation Status: retired Allergies Coded Allergies: Codeine (Verified Adverse Reaction, Mild, NAUSEA VOMITING, 12/02/16) Erythromycin (Verified Adverse Reaction, Mild, N/V, 12/02/16) Home Medications Scheduled Bupropion (Wellbutrin Sr), 100 MG PO BID Cholecalciferol (Vitamin D-3), 1,000 PO QAM Dorzolamide Hcl-Timolol Maleat (Cosopt Oph), 1 DROPS OPR BID Furosemide (Lasix), 40 MG PO DAILY Gabapentin (Neurontin), 300 MG PO BID Levothyroxine Sodium (Levothyroxine Sodium), 25 MCG PO QAM Metoprolol Tartrate (Lopressor) (Lopressor), 50 MG PO BID Potassium Ext Rel (Klor-Con), 20 MEQ PO Q2D Travoprost (Travatan Z), 1 DROP OPB HS Scheduled PRN Fluticasone Propionate (Nasal) (Flonase Allergy Relief), 1 SPRAY JENNIFER BID PRN for Allergy Symptoms Lorazepam (Ativan), 0.5 MG PO TID PRN for Anxiety Omeprazole (Prilosec), 20 MG PO DAILY PRN for Acid Reflux Current Inpatient Medications Current Inpatient Medications Medications (Trade) Dose Ordered Sig/Zulema Route Start Time Stop Time Status Last Admin Dose Admin Bupropion HCl (Wellbutrin-Sr Tab) 100 mg BID PO 02/23/17 21:00 03/25/17 20:59 02/24/17 09:21 100 MG Cholecalciferol (Vitamin D Tab) 1,000 inter.unit QAM PO 02/24/17 09:00 03/26/17 08:59 02/24/17 09:21 1,000 INTER.UNIT Dorzolamide/ Timolol (Cosopt Op Soln) 1 drops BID OPR 02/23/17 21:00 03/25/17 20:59 02/24/17 09:23 1 DROPS Fluticasone Propionate (Flonase Nasal [place]) 1 sprays BID PRN JENNIFER 02/23/17 18:15 03/25/17 18:14 Furosemide (Lasix Tab) 40 mg DAILY PO 02/24/17 09:00 03/26/17 08:59 02/24/17 09:22 40 MG Gabapentin (Neurontin Cap) 300 mg BID PO 02/23/17 21:00 03/25/17 20:59 02/24/17 09:21 300 MG Levothyroxine Sodium (Synthroid Tab) 25 mcg DAILYBB PO 02/24/17 06:00 03/26/17 06:59 02/24/17 05:34 25 MCG Lorazepam (Ativan Tab) 0.5 mg TID PRN PO 02/23/17 18:15 03/25/17 18:14 Metoprolol Tartrate (Lopressor Tab) 50 mg BID PO 02/23/17 21:00 03/25/17 20:59 02/23/17 20:48 50 MG Potassium Chloride (Klor-Con Tab) 20 meq Q2D@0900 PO 02/23/17 20:00 03/25/17 19:59 02/23/17 20:44 20 MEQ Travoprost (Travatan Z) 1 drops HS OPB 02/23/17 21:00 03/25/17 20:59 02/23/17 20:44 1 DROPS Pantoprazole Sodium (Protonix Tab) 40 mg DAILY PRN PO 02/23/17 18:15 03/25/17 18:14 Heparin Sodium (Porcine) (Heparin Sq 5000 Unit/0.5ml) 5,000 unit Q8 SQ 02/23/17 22:00 03/25/17 21:59 02/24/17 05:34 5,000 UNIT Acetaminophen (Tylenol Tab) 650 mg Q4H PRN PO 02/23/17 18:15 03/25/17 18:14 Al Hydrox/Mg Hydrox/Simethicone (Maalox Max Susp) 15 ml Q4H PRN PO 02/23/17 18:15 03/25/17 18:14 Magnesium Hydroxide (Milk Of Magnesia Susp) 30 ml Q6H PRN PO 02/23/17 18:15 03/25/17 18:14 Polyethylene (Miralax Powder Packet) 17 gm DAILY PRN PO 02/23/17 18:15 03/25/17 18:14 Ondansetron HCl (Zofran Inj) 4 mg Q6H PRN IV 02/23/17 18:15 03/25/17 18:14 Tramadol HCl (Ultram Tab) 50 mg Q4H PRN PO 02/23/17 18:45 03/25/17 18:44 02/24/17 09:23 50 MG Miscellaneous (Iv Fluids Completed) 1 ea PRN PRN N/A 02/23/17 19:15 02/23/18 19:14 Nystatin (Mycostatin Powder) 1 appln QID EXT 02/24/17 09:00 03/26/17 08:59 02/24/17 09:23 1 APPLN Physical Exam Date Time Temp Pulse Resp B/P (MAP) Pulse Ox O2 Delivery O2 Flow Rate FiO2 02/24/17 09:20 57 127/67 (87) 02/24/17 07:35 Nasal Cannula 2.0 02/24/17 07:05 36.6 61 16 108/68 (81) 97 Nasal Cannula 2.0 02/24/17 05:48 89 Room Air 02/24/17 05:48 97 Nasal Cannula 2.0 02/23/17 23:35 Nasal Cannula 2.0 02/23/17 22:44 36.5 56 16 123/74 (90) 95 Nasal Cannula 2.0 02/23/17 19:45 37.0 57 18 151/67 (95) 92 Nasal Cannula 2.0 02/23/17 19:45 Nasal Cannula 2.0 02/23/17 19:38 58 18 151/70 94 02/23/17 17:42 60 18 165/71 100 Nasal Cannula 2.0 02/23/17 17:10 94 Room Air 02/23/17 14:35 58 02/23/17 14:34 37.1 69 18 166/84 94 Room Air Muscle skeletal. She is unable to roll over in bed for me so I may examine her back. She is neurologically intact bilateral lower extremities. Negative [place]. Negative tension signs. In no obvious distress lying in bed. Laboratory Results Last 24 Hours Test 02/23/17 14:40 02/23/17 15:46 02/23/17 17:30 02/23/17 19:32 Creatine Kinase MB Ratio White Blood Count 12.83 K/uL Red Blood Count 4.26 M/uL Hemoglobin 10.8 g/dL Hematocrit 35.2 % Mean Corpuscular Volume 82.6 fL Mean Corpuscular Hemoglobin 25.4 pg Mean Corpuscular Hemoglobin Concent 30.7 g/dl Platelet Count 215 K/uL Mean Platelet Volume 10.1 fL Neutrophils (%) (Auto) 85.6 % Lymphocytes (%) (Auto) 6.9 % Monocytes (%) (Auto) 6.5 % Eosinophils (%) (Auto) 0.0 % Basophils (%) (Auto) 0.1 % Neutrophils # (Auto) 11.00 K/uL Lymphocytes # (Auto) 0.88 K/uL Monocytes # (Auto) 0.83 K/uL Eosinophils # (Auto) 0.00 K/uL Basophils # (Auto) 0.01 K/uL RDW Standard Deviation 51.3 fL RDW Coefficient of Variation 17.2 % Immature Granulocyte % (Auto) 0.9 % Immature Granulocyte # (Auto) 0.11 K/uL Sodium Level 143 mmol/L Potassium Level 3.7 mmol/L Chloride Level 107 mmol/L Carbon Dioxide Level 28 mmol/L Anion Gap 8.0 mmol/L Blood Urea Nitrogen 32 mg/dl Creatinine 1.20 mg/dl Est Creatinine Clear Calc Drug Dose 30.4 ml/min Estimated GFR () 47.4 Estimated GFR (Non- 40.9 BUN/Creatinine Ratio 26.8 Random Glucose 77 mg/dl Calcium Level 9.1 mg/dl Total Bilirubin 0.4 mg/dl Direct Bilirubin 0.2 mg/dl Aspartate Amino Transf (AST/SGOT) 17 U/L Alanine Aminotransferase (ALT/SGPT) 19 U/L Alkaline Phosphatase 68 U/L Total Creatine Kinase 55 U/L Creatine Kinase MB < 0.5 ng/ml Total Protein 6.3 gm/dl Albumin 2.8 gm/dl Lipase 80 U/L Prothrombin Time 10.5 SECONDS Prothromb Time International Ratio 1.0 Test 02/23/17 20:30 Urine Color YELLOW Urine Appearance CLEAR Urine pH 6.5 Urine Specific [place] 1.013 Urine Protein NEG Urine Glucose (UA) NEG Urine Ketones NEG Urine Occult Blood NEG Urine Nitrite NEG Urine Bilirubin NEG Urine Urobilinogen NEG Urine Leukocyte Esterase TRACE Urine WBC (Auto) 1-5 /hpf Urine RBC (Auto) 0-4 /hpf Urine Hyaline Casts (Auto) 0 /lpf Urine Epithelial Cells (Auto) 20-30 /lpf Urine Bacteria (Auto) NEG Patient Name: DARIUS CEJA Unit Number: [id number] Dictated: 02/23/[id number] Transcribed: 02/23/17 1532 MS Printed Date/Time: [~ rep prt dt]/[~ rep prt tm] [~ rep ct labl] - [~ rep ct ivnm] [facility] Radiology Department [place], [place] [id number] Dictated: 02/23/17 1532 Transcribed: 02/23/17 1532 MS Printed Date/Time: [~ rep prt dt]/[~ rep prt tm] [~ rep ct labl] - [~ rep ct ivnm] [~ rep ct add3]] LUMBAR SPINE WITHOUT CT DOSE: 932.23 mGy.cm HISTORY: Trauma eval for trauma TECHNIQUE: Multiaxial CT images of the lumbar spine were performed and reformatted in the sagittal and coronal plane without the use of contrast. COMPARISON: MRI 09/08/2009 FINDINGS: Mild increase in compression of the L2 vertebral body compared to the prior exam. Posterior retropulsion of the posterior margin of the vertebral body has increased. Maximum AP dimension is 6 mm currently with the prior study 7.5 mm. Interval vertebral plasty. Loss of vertebral body height is now estimated approximately 75%. Remaining vertebral bodies appear similar. Grade 1 anterolisthesis of L4 and L5 is again noted with an associated vacuum disc. Posterior elements show degenerative change but are generally intact. IMPRESSION: 1. Somewhat progressive compression deformity of L2 compared to the prior study 2. Loss of vertebral body height is now estimated 75% increase from 50% on the prior study. 3. Interval vertebroplasty. 4. Increase in posterior displacement of the posterior margin of the L2 vertebral body with residual spinal canal lumen now measuring 6 mm diminished from the prior study of 7.5 mm The above report was generated using voice recognition software. It may contain grammatical, syntax or spelling errors. Electronically signed by: Michel Mann M.D. 02/23/2017 3:41 PM Dictated Date/Time: 02/23/2017 3:32 PM The status of this report is Signed. Draft = Not yet reviewed or approved by Radiologist. Signed = Reviewed and approved by Radiologist. <AttendingPhy></AttendingPhy> <FamilyPhy>Alecia Garcia C.RColtonNColtonP</FamilyPhy> < PrimaryPhy>Alecia Garcia C.R.N.P</PrimaryPhy> <UnitNumber>[id number]</ UnitNumber> <VisitNumber>[id number]</VisitNumber> <PatientName>ROBCLAUDIA DARIUS Dennison</PatientName> <DateOfBirth>1930</DateOfBirth> <Location>[facility]< /Location> <ServiceDate>02/23/17</ServiceDate> <MNE>ESINDI</MNE> <OrderingPhy> Darvin Tesfaye M.D.</OrderingPhy> <OrderingPhyMNE>f rep ord dr ferrer</ OrderingPhyMNE> <DictatingPhyMNE>f rep dict dr ferrer</DictatingPhyMNE> <CCListMNE> f rep ct nabil</CCListMNE> <AdmittingPhyMNE>f pt admit dr ferrer</AdmittingPhyMNE> < AttendingPhyMNE>f pt attend dr ferrer</AttendingPhyMNE> <ConsultingPhyMNE>f pt consult dr ferrer</ConsultingPhyMNE> <FamilyPhyMNE>f pt fam dr ferrer</FamilyPhyMNE> <OtherPhyMNE>f pt other dr ferrer</OtherPhyMNE> < PrimaryPhyMNE>f pt prim care dr ferrer</PrimaryPhyMNE> <ReferringPhyMNE>f pt referring dr ferrer</ReferringPhyMNE> Assessment & Plan Lower back pain status post fall. L4 5 vacuum phenomenon was spondylolisthesis. 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 Plan at this point I will pursue MRI of the lumbar spine for further evaluation of her stenosis most notably at the L2-3, L4 5 levels. We'll be able to make further recommendations upon MRI review. There does not appear to be a new/ acute compression deformity. There does appear to be evidence of progression of her stenosis at the L2-3 level.
[2017-02-24] MEDS: LORAZEPAM 0.5 MG TAB PO PRN (15:57)
--- NOTE | 2017-02-24 16:06 | Family Medicine Progress Note ---
Progress Note Date of Service Feb 24, 2017. Subjective Pt evaluation today including: conversation w/ patient, physical exam, chart review, lab review, review of studies Pain: patient reports tenderness 10 pain with forward flexion Voiding: no voiding problems, no incontinence The patient states that she is improved pain today but is not able to get her to bed. She does not think she will be able to go home due to her increased pain. She states that she has been taking pathology in the past and recently was seen by Dr. Farias for bilateral shoulder injections. She states that she would not want surgery even if she were a candidate. Constitutional: No fever, No chills Respiratory: No cough, No shortness of breath Cardiovascular: No chest pain Abdomen: No pain, No nausea Musculoskeletal: + problem reported (Severe back pain with movement) All Other Systems: Reviewed and Negative Medications Current Inpatient Medications Medications (Trade) Dose Ordered Sig/Zulema Route Start Time Stop Time Status Last Admin Dose Admin Bupropion HCl (Wellbutrin-Sr Tab) 100 mg BID PO 02/23/17 21:00 03/25/17 20:59 02/24/17 09:21 100 MG Cholecalciferol (Vitamin D Tab) 1,000 inter.unit QAM PO 02/24/17 09:00 03/26/17 08:59 02/24/17 09:21 1,000 INTER.UNIT Dorzolamide/ Timolol (Cosopt Op Soln) 1 drops BID OPR 02/23/17 21:00 03/25/17 20:59 02/24/17 09:23 1 DROPS Fluticasone Propionate (Flonase Nasal [place]) 1 sprays BID PRN JENNIFER 02/23/17 18:15 03/25/17 18:14 Furosemide (Lasix Tab) 40 mg DAILY PO 02/24/17 09:00 03/26/17 08:59 02/24/17 09:22 40 MG Gabapentin (Neurontin Cap) 300 mg BID PO 02/23/17 21:00 03/25/17 20:59 02/24/17 09:21 300 MG Levothyroxine Sodium (Synthroid Tab) 25 mcg DAILYBB PO 02/24/17 06:00 03/26/17 06:59 02/24/17 05:34 25 MCG Lorazepam (Ativan Tab) 0.5 mg TID PRN PO 02/23/17 18:15 03/25/17 18:14 02/24/17 15:57 0.5 MG Metoprolol Tartrate (Lopressor Tab) 50 mg BID PO 02/23/17 21:00 03/25/17 20:59 02/23/17 20:48 50 MG Potassium Chloride (Klor-Con Tab) 20 meq Q2D@0900 PO 02/23/17 20:00 03/25/17 19:59 02/23/17 20:44 20 MEQ Travoprost (Travatan Z) 1 drops HS OPB 02/23/17 21:00 03/25/17 20:59 02/23/17 20:44 1 DROPS Pantoprazole Sodium (Protonix Tab) 40 mg DAILY PRN PO 02/23/17 18:15 03/25/17 18:14 Heparin Sodium (Porcine) (Heparin Sq 5000 Unit/0.5ml) 5,000 unit Q8 SQ 02/23/17 22:00 03/25/17 21:59 02/24/17 13:51 5,000 UNIT Acetaminophen (Tylenol Tab) 650 mg Q4H PRN PO 02/23/17 18:15 03/25/17 18:14 Al Hydrox/Mg Hydrox/Simethicone (Maalox Max Susp) 15 ml Q4H PRN PO 02/23/17 18:15 03/25/17 18:14 Magnesium Hydroxide (Milk Of Magnesia Susp) 30 ml Q6H PRN PO 02/23/17 18:15 03/25/17 18:14 Polyethylene (Miralax Powder Packet) 17 gm DAILY PRN PO 02/23/17 18:15 03/25/17 18:14 Ondansetron HCl (Zofran Inj) 4 mg Q6H PRN IV 02/23/17 18:15 03/25/17 18:14 02/24/17 12:52 4 MG Tramadol HCl (Ultram Tab) 50 mg Q4H PRN PO 02/23/17 18:45 03/25/17 18:44 02/24/17 13:52 50 MG Miscellaneous (Iv Fluids Completed) 1 ea PRN PRN N/A 02/23/17 19:15 02/23/18 19:14 Nystatin (Mycostatin Powder) 1 appln QID EXT 02/24/17 09:00 03/26/17 08:59 02/24/17 09:23 1 APPLN Objective Vital Signs Date Time Temp Pulse Resp B/P (MAP) Pulse Ox O2 Delivery O2 Flow Rate FiO2 02/24/17 15:33 36.3 64 16 136/83 (100) 97 Nasal Cannula 2.0 02/24/17 09:20 57 127/67 (87) 02/24/17 07:35 Nasal Cannula 2.0 02/24/17 07:05 36.6 61 16 108/68 (81) 97 Nasal Cannula 2.0 02/24/17 05:48 89 Room Air 02/24/17 05:48 97 Nasal Cannula 2.0 02/23/17 23:35 Nasal Cannula 2.0 02/23/17 22:44 36.5 56 16 123/74 (90) 95 Nasal Cannula 2.0 02/23/17 19:45 37.0 57 18 151/67 (95) 92 Nasal Cannula 2.0 02/23/17 19:45 Nasal Cannula 2.0 02/23/17 19:38 58 18 151/70 94 02/23/17 17:42 60 18 165/71 100 Nasal Cannula 2.0 02/23/17 17:10 94 Room Air Physical Exam General Appearance: WD/WN, no apparent distress Respiratory/Chest: chest non-tender, lungs clear, normal breath sounds Cardiovascular: regular rate, rhythm, no edema, no gallop Abdomen: normal bowel sounds, non tender, soft Extremities: + pertinent finding (Tenderness with any palpation of lower back or attempted movement of lower extremities) Neurologic/Psychiatric: alert, normal mood/affect, oriented x 3 Laboratory Results Results Past 24 Hours Test 02/23/17 17:30 02/23/17 19:32 02/23/17 20:30 Range/Units Sodium Level 143 136-145 mmol/L Potassium Level 3.7 3.5-5.1 mmol/L Chloride Level 107 98-107 mmol/L Carbon Dioxide Level 28 21-32 mmol/L Anion Gap 8.0 3-11 mmol/L Blood Urea Nitrogen 32 7-18 mg/dl Creatinine 1.20 0.60-1.20 mg/dl Est Creatinine Clear Calc Drug Dose 30.4 ml/min Estimated GFR () 47.4 Estimated GFR (Non- 40.9 BUN/Creatinine Ratio 26.8 10-20 Random Glucose 77 70-99 mg/dl Calcium Level 9.1 8.5-10.1 mg/dl Total Bilirubin 0.4 0.2-1 mg/dl Direct Bilirubin 0.2 0-0.2 mg/dl Aspartate Amino Transf (AST/SGOT) 17 15-37 U/L Alanine Aminotransferase (ALT/SGPT) 19 12-78 U/L Alkaline Phosphatase 68 45-117 U/L Total Creatine Kinase 55 26-192 U/L Creatine Kinase MB < 0.5 0.5-3.6 ng/ml Creatine Kinase MB Ratio 0-3.0 Total Protein 6.3 6.4-8.2 gm/dl Albumin 2.8 3.4-5.0 gm/dl Lipase 80 73-393 U/L Prothrombin Time 10.5 9.0-12.0 SECONDS Prothromb Time International Ratio 1.0 0.9-1.1 Urine Color YELLOW Urine Appearance CLEAR CLEAR Urine pH 6.5 4.5-7.5 Urine Specific [place] 1.013 1.000-1.030 Urine Protein NEG NEG Urine Glucose (UA) NEG NEG Urine Ketones NEG NEG Urine Occult Blood NEG NEG Urine Nitrite NEG NEG Urine Bilirubin NEG NEG Urine Urobilinogen NEG NEG Urine Leukocyte Esterase TRACE NEG Urine WBC (Auto) 1-5 0-5 /hpf Urine RBC (Auto) 0-4 0-4 /hpf Urine Hyaline Casts (Auto) 0 0-5 /lpf Urine Epithelial Cells (Auto) 20-30 0-5 /lpf Urine Bacteria (Auto) NEG NEG Microbiology Results 02/23/17 Urine Culture - Preliminary, Resulted NO GROWTH - LESS THAN 1,000 COLONIES/... Assessment and Plan The patient is an 87-year-old female that presents with a worsening compression fracture of her L2 vertebrae. On CT scan and shows a worsening of decompression from 50% on previous CT scan findings to 75% currently. She slipped while trying to pick some of the forearm landed on her back causing a worsening fracture. She did have surgery with Dr. Clements to correct the compression several years ago, but does not want surgery at this time. At this time we will await the recommendations from physical therapy and recommended the patient go to a SNF for physical therapy. 1) Compression Fracture of L2 - Mechanical fall, patient acknowledges being told not to bend down to pick things off the floor - Pain well controlled - Tramadol 50mg q4h PRN - Orthopaedics consulted - PT/OT Consulted - Will most likely need rehabilitation, case management consulted 2) Disposition - Referral sent out by case management to [facility] at this time 3) Leukocytosis - Most likely 2/2 to recent steroid injection received on Friday by Dr. Farias 4) Home Medications - Bupropion 100mg PO BID - Cosopt Opthalmalogic Eye Drops - Fluticasone - Lasix 40mg PO BID - Gabapentin 300mg PO BID - Synthroid 25 mcg PO QAM - Ativan 0.5mg PO TID PRN - Metoprolol 50mg PO BID - Omeprazole 20mg PO Daily - KCl 20 mEq PO Q2D 5) DVT Prophylaxis - Heparin 6) Code Status -Full Resuscitation History Resident Physician Supervision Note: I was present with Dr. Sahu during the history and exam. I discussed the case with the resident and agree with the findings and plan as documented in the note. Any exceptions or clarifications are listed here Pt resting in bed, relatively little pain with being stationary but considerable increase with movement. Upon inquiry, she had a mechanical fall bending down to pick something up 'which she knows she's not supposed to do'. General Appearance: WD/WN, no apparent distress, obese Respiratory: chest non-tender, lungs clear, normal breath sounds, no respiratory distress Cardiovascular: normal peripheral pulses, regular rate, rhythm, no murmur Extremities: other (TTP in the lumbar region diffusely worse centrally w/ pain w/ movement of the legs) Neurologic/Psychiatric: no motor/sensory deficits, alert, normal mood/affect, oriented x 3 Assessment/Plan 87 y/o female h/o spinal fusion presents w/ LBP s/p fall LBP s/p fall - ortho aware and recommendations appreciated. MRI today. PT pending CHF - Significantly improved LE edema, continue scheduled dose, trend BMP in AM Leukocytosis - mild w/o apparent infectious cause - likely steroid injection v. trauma related. Check CBC in AM HTN - continue metoprolol Hypothyroidism - continue synthroid
--- NOTE | 2017-02-24 17:13 | DIAGNOSTIC IMAGING REPORT ---
LUMBAR SPINE W/O CONTRAST HISTORY: Pain low back pain s/p fall; eval stenosis TECHNIQUE: Multiplanar multisequence MRI of the lumbar spine was performed without the use of contrast. COMPARISON: CT 02/23/2017 FINDINGS: For the purpose of the report the compressed vertebral body is identified at L2. There is sacralization of the L5 vertebral body. 1. T12-L1: No significant stenosis. 2. L2: Near-complete compression deformity with posterior displacement of the posterior aspect of the vertebral body. Severe multifactorial narrowing of spinal canal with estimated residual minimal anterior to posterior cross-sectional dimension of 4 mm. The posterior margin of the L2 vertebral body is displaced x 6 mm. L2-L3 mild narrowing of the right to lesser extent left neural foramina L3-L4. Mild degenerative change posterior elements. L4-L5 moderate narrowing of multifactorial basis of the neuroforamina and spinal canal. L5-S1: No significant stenosis. IMPRESSION: 1. Near complete compression deformity L2 with posterior displacement of the vertebral body 6 mm.. 2. This creates severe multifactorial spinal stenosis as well as bilateral foraminal stenosis. 3. True anterior to posterior dimension luminal measurement is 4 mm at this site 4. Grade 1 anterolisthesis L4 on L5 with moderate multifactorial narrowing of the neuroforamina and spinal canal. 5. Is specifically noted that the compressed lumbar vertebral body is labeled as L2 as has been done on prior exams The above report was generated using voice recognition software. It may contain grammatical, syntax or spelling errors. Electronically signed by: Michel Mann M.D. 02/24/2017 5:12 PM Dictated Date/Time: 02/24/2017 5:03 PM
[2017-02-24] MEDS: TRAVOPROST Z 0.004% OPH SOLN 2.5 ML BTL OPB SCH (20:34)
[2017-02-25] MEDS: LEVOTHYROXINE 25 MCG TAB PO SCH (05:23)
[2017-02-25] MEDS: HEPARIN SOD 5000 UNIT/0.5 ML CARP SQ SCH ×3 (05:24→21:08)
[2017-02-25 05:30] VITALS: O2SAT 91
[2017-02-25 07:41] VITALS: BP 132/78; PULSE 59; TEMP 36.6; O2SAT 91
[2017-02-25 07:59] VITALS: O2SAT 91
--- NOTE | 2017-02-25 08:25 | Family Medicine Progress Note ---
Progress Note Date of Service Feb 25, 2017. Subjective Pt evaluation today including: conversation w/ patient, physical exam Patient resting comfortably in bed today. She states that when she was being lifted out of bed by the nurses this morning she experienced some right-sided rib pain. She continues to have pain with forward flexion is unable to lift herself out of bed. She denies any fevers, chills, nausea, vomiting, abdominal pain, chest pain, headache, or any other acute complaints. Constitutional: No fever, No chills Respiratory: No cough, No shortness of breath Cardiovascular: No chest pain, No edema Abdomen: No pain, No nausea, No vomiting Musculoskeletal: + problem reported (Back pain with forward flexion. Right sided rib pain.) Female : No dysuria Neurologic: No numbness/tingling Medications Current Inpatient Medications Medications (Trade) Dose Ordered Sig/Zulema Route Start Time Stop Time Status Last Admin Dose Admin Bupropion HCl (Wellbutrin-Sr Tab) 100 mg BID PO 02/23/17 21:00 03/25/17 20:59 02/25/17 08:49 100 MG Cholecalciferol (Vitamin D Tab) 1,000 inter.unit QAM PO 02/24/17 09:00 03/26/17 08:59 02/25/17 08:49 1,000 INTER.UNIT Dorzolamide/ Timolol (Cosopt Op Soln) 1 drops BID OPR 02/23/17 21:00 03/25/17 20:59 02/25/17 08:46 1 DROPS Fluticasone Propionate (Flonase Nasal [place]) 1 sprays BID PRN JENNIFER 02/23/17 18:15 03/25/17 18:14 Furosemide (Lasix Tab) 40 mg DAILY PO 02/24/17 09:00 03/26/17 08:59 02/25/17 08:48 40 MG Gabapentin (Neurontin Cap) 300 mg BID PO 02/23/17 21:00 03/25/17 20:59 02/25/17 08:49 300 MG Levothyroxine Sodium (Synthroid Tab) 25 mcg DAILYBB PO 02/24/17 06:00 03/26/17 06:59 02/25/17 05:23 25 MCG Lorazepam (Ativan Tab) 0.5 mg TID PRN PO 02/23/17 18:15 03/25/17 18:14 02/25/17 16:44 0.5 MG Metoprolol Tartrate (Lopressor Tab) 50 mg BID PO 02/23/17 21:00 03/25/17 20:59 02/25/17 08:48 50 MG Travoprost (Travatan Z) 1 drops HS OPB 02/23/17 21:00 03/25/17 20:59 02/24/17 20:34 1 DROPS Pantoprazole Sodium (Protonix Tab) 40 mg DAILY PRN PO 02/23/17 18:15 03/25/17 18:14 Heparin Sodium (Porcine) (Heparin Sq 5000 Unit/0.5ml) 5,000 unit Q8 SQ 02/23/17 22:00 03/25/17 21:59 02/25/17 13:46 5,000 UNIT Acetaminophen (Tylenol Tab) 650 mg Q4H PRN PO 02/23/17 18:15 03/25/17 18:14 02/24/17 17:16 650 MG Al Hydrox/Mg Hydrox/Simethicone (Maalox Max Susp) 15 ml Q4H PRN PO 02/23/17 18:15 03/25/17 18:14 Magnesium Hydroxide (Milk Of Magnesia Susp) 30 ml Q6H PRN PO 02/23/17 18:15 03/25/17 18:14 Polyethylene (Miralax Powder Packet) 17 gm DAILY PRN PO 02/23/17 18:15 03/25/17 18:14 Ondansetron HCl (Zofran Inj) 4 mg Q6H PRN IV 02/23/17 18:15 03/25/17 18:14 02/24/17 12:52 4 MG Tramadol HCl (Ultram Tab) 50 mg Q4H PRN PO 02/23/17 18:45 03/25/17 18:44 02/25/17 13:42 50 MG Miscellaneous (Iv Fluids Completed) 1 ea PRN PRN N/A 02/23/17 19:15 02/23/18 19:14 Nystatin (Mycostatin Powder) 1 appln QID EXT 02/24/17 09:00 03/26/17 08:59 02/25/17 16:25 1 APPLN Potassium Chloride (Klor-Con Tab) 20 meq Q2D@2100 PO 02/25/17 21:00 03/25/17 19:59 Objective Vital Signs Date Time Temp Pulse Resp B/P (MAP) Pulse Ox O2 Delivery O2 Flow Rate FiO2 02/25/17 16:00 Room Air 02/25/17 15:31 36.8 69 18 122/75 (91) 93 Room Air 02/25/17 08:00 Room Air 02/25/17 07:59 91 Room Air 02/25/17 07:41 36.6 59 14 132/78 (96) 91 Room Air 02/25/17 05:30 91 Room Air 02/24/17 23:40 Nasal Cannula 2.0 02/24/17 23:32 36.5 62 16 133/72 (92) 99 Nasal Cannula 2.0 Physical Exam General Appearance: WD/WN, no apparent distress Eyes: normal inspection, sclerae normal Respiratory/Chest: chest non-tender, lungs clear, normal breath sounds Cardiovascular: regular rate, rhythm, no edema, no gallop Abdomen: normal bowel sounds, non tender, soft Extremities: no calf tenderness, + pertinent finding (Patient experiences tenderness with palpation of the lower extremities, tenderness over her right inferior ribs, and tenderness over her lower back with forward flexion) Neurologic/Psychiatric: alert, normal mood/affect, oriented x 3 Assessment and Plan The patient is an 87-year-old female that presents with a worsening compression fracture of her L2 vertebrae. On CT scan and shows a worsening of decompression from 50% on previous CT scan findings to 75% currently. She slipped while trying to pick some of the forearm landed on her back causing a worsening fracture. She did have surgery with Dr. Clements to correct the compression several years ago, but does not want surgery at this time. At this time we will await the recommendations from physical therapy and recommended the patient go to a SNF for physical therapy. 1) Compression Fracture of L2 - Mechanical fall, patient acknowledges being told not to bend down to pick things off the floor - Pain well controlled - Tramadol 50mg q4h PRN - Orthopaedics consulted - Ordered MRI that showed old L3 burst fx that had prior kyphoplasty with stenosis at L3-4 and L5-S1 and associated spondylolisthesis - Signed off and stated that patient would be appropriate candidate for physical therapy An outpatient pain management - PT/OT Consulted - Unable to see the patient today and will evaluate the patient tomorrow - Will most likely need rehabilitation, case management consulted - Heat and warm compress for pain 2) Right-sided rib series - X-rays show nondisplaced fractures of ribs 5-7 on the right side - No visible Pneumothorax - Ensure adequate pain control - Heat and warm compress for pain 3) Disposition - Referral sent out by case management to [facility] at this time 4) Leukocytosis - Most likely 2/2 to recent steroid injection received on Friday by Dr. Farias 5) Home Medications - Bupropion 100mg PO BID - Cosopt Opthalmalogic Eye Drops - Fluticasone - Lasix 40mg PO BID - Gabapentin 300mg PO BID - Synthroid 25 mcg PO QAM - Ativan 0.5mg PO TID PRN - Metoprolol 50mg PO BID - Omeprazole 20mg PO Daily - KCl 20 mEq PO Q2D 6) DVT Prophylaxis - Heparin 7) Code Status -Full Resuscitation History Resident Physician Supervision Note: I was present with Dr. Sahu during the history and exam. I discussed the case with the resident and agree with the findings and plan as documented in the note. Any exceptions or clarifications are listed here. Pt reports improvement in resting right rib pain Assessment/Plan 87 y/o female h/o spinal fusion presents w/ LBP s/p fall Right rib fxs, nondisplaced - pain control, behavioral modifications, encourage IS use to prevent PNA LBP s/p fall - ortho aware and recommendations appreciated - would benefit from continued PT and pain control, no further intervention rec'd at this time CHF - continue present regimen, monitor for changes Leukocytosis - repeat CBC HTN - continue metoprolol Hypothyroidism - continue synthroid Resident Tracking Resident Involvement: Resident Care Provided Care Provided: Adult Hospital Medicine
[2017-02-25] MEDS: NYSTATIN POWDER 15GM BTL EXT SCH ×4 (08:39→21:10)
[2017-02-25] MEDS: DORZOLAMIDE/TIMOLOL 22.3/6.8MG/ML 10 ML BTL OPR SCH ×2 (08:46→21:10)
[2017-02-25] MEDS: METOPROLOL TARTRATE 50 MG TAB PO SCH ×2 (08:48→21:39)
[2017-02-25] MEDS: FUROSEMIDE 40 MG TAB PO SCH (08:48)
[2017-02-25] MEDS: GABAPENTIN 300 MG CAP PO SCH ×2 (08:49→21:09)
[2017-02-25] MEDS: BuPROPion SR 100 MG TABCR PO SCH ×2 (08:49→21:09)
[2017-02-25] MEDS: CHOLECALCIFEROL 1000 INTER.UNIT TAB PO SCH (08:49)
[2017-02-25] MEDS: TRAMADOL HCL 50 MG TAB PO PRN ×2 (08:50→13:42)
--- NOTE | 2017-02-25 12:43 | Consultant Recommendations ---
Service Consultant Recommendations Date of Service Feb 25, 2017. Service Consultant Recommendations PA-c note reviewed. 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 She has no radicular pain, numbness, or weakness of LE's. Her exam of LE's shows intact strength, absent DTRs, non tender hip logroll. I recommend PT and outpatient pain management. She does not desire surgery.
--- NOTE | 2017-02-25 13:36 | DIAGNOSTIC IMAGING REPORT ---
RIBS UNILATERAL WITH PA CHEST CLINICAL HISTORY: FALL FRIDAY, INCREASED PAIN RT MID TO LOWER RIBS. COMPARISON STUDY: 02/23/2017 FINDINGS: Nondisplaced fractures of the right fifth, 6, and seventh ribs. No evidence pneumothorax. Mild stable cardiomegaly. Small hiatal hernia. Considerable degenerative change of the right and to lesser degree left shoulder. IMPRESSION: Nondisplaced fractures right fifth through seventh ribs. No evidence pneumothorax. Small hiatal hernia. The above report was generated using voice recognition software. It may contain grammatical, syntax or spelling errors. Electronically signed by: Michel Mann M.D. 02/25/2017 1:35 PM Dictated Date/Time: 02/25/2017 1:32 PM
[2017-02-25 15:31] VITALS: BP 122/75; PULSE 69; TEMP 36.8; O2SAT 93
[2017-02-25] MEDS ORDERED: MoRPHine SULFATE 2 MG/ML CARP IV STA (16:31)
[2017-02-25] MEDS: LORAZEPAM 0.5 MG TAB PO PRN (16:44)
[2017-02-25] MEDS ORDERED: POTASSIUM CHLORIDE 20 MEQ TABCR PO SCH (21:00)
[2017-02-25] MEDS: TRAVOPROST Z 0.004% OPH SOLN 2.5 ML BTL OPB SCH (21:11)
[2017-02-25 23:30] VITALS: BP 153/85; PULSE 71; TEMP 36.5; O2SAT 96
[2017-02-26] MEDS: LEVOTHYROXINE 25 MCG TAB PO SCH (05:37)
[2017-02-26] MEDS: HEPARIN SOD 5000 UNIT/0.5 ML CARP SQ SCH ×3 (05:40→21:26)
[2017-02-26 07:40] LABS: HEMATOCRIT 31.7 % (37-47); MEAN CELL VOLUME 82.3 fL (80-100); MEAN CORPUSCULAR HEMOGLOBIN 25.2 pg (25-34); MEAN CORPUSCULAR HGB CONC 30.6 g/dl (32-36); MEAN PLATELET VOLUME 10.2 fL (7.4-10.4); PLATELET COUNT 170 K/uL (130-400); RED BLOOD COUNT 3.85 M/uL (4.2-5.4)
[2017-02-26 07:59] VITALS: BP 120/70; PULSE 74; TEMP 36.9; O2SAT 91
[2017-02-26 08:01] VITALS: O2SAT 91
[2017-02-26] MEDS: NYSTATIN POWDER 15GM BTL EXT SCH ×4 (09:21→21:22)
[2017-02-26] MEDS: FUROSEMIDE 40 MG TAB PO SCH (09:22)
[2017-02-26 09:26] VITALS: BP 135/65; PULSE 60
[2017-02-26] MEDS: METOPROLOL TARTRATE 50 MG TAB PO SCH ×2 (09:28→21:20)
[2017-02-26] MEDS: DORZOLAMIDE/TIMOLOL 22.3/6.8MG/ML 10 ML BTL OPR SCH ×2 (09:29→21:21)
[2017-02-26] MEDS: BuPROPion SR 100 MG TABCR PO SCH ×2 (09:29→21:22)
[2017-02-26] MEDS: GABAPENTIN 300 MG CAP PO SCH ×2 (09:30→21:22)
[2017-02-26] MEDS: CHOLECALCIFEROL 1000 INTER.UNIT TAB PO SCH (09:30)
[2017-02-26] MEDS: TRAMADOL HCL 50 MG TAB PO PRN ×3 (12:09→21:23)
[2017-02-26 15:46] VITALS: BP 142/84; PULSE 70; TEMP 36.3; O2SAT 96
[2017-02-26 16:15] VITALS: O2SAT 96
--- NOTE | 2017-02-26 17:42 | Family Medicine Progress Note ---
Progress Note Date of Service Feb 26, 2017. Subjective Pt evaluation today including: conversation w/ patient, physical exam, chart review, lab review, review of studies Pain: 4/10 pain with forward flexion Voiding: no voiding problems, no incontinence Patient is resting comfortably in bed this morning with no acute events overnight. Patient states that her pain has been well controlled with tramadol. Constitutional: No fever, No chills Respiratory: No cough, No wheezing Cardiovascular: No chest pain, No palpitations Abdomen: No pain, No nausea, No vomiting Musculoskeletal: + problem reported (back and right-sided rib pain) Female : No dysuria Medications Current Inpatient Medications Medications (Trade) Dose Ordered Sig/Zulema Route Start Time Stop Time Status Last Admin Dose Admin Bupropion HCl (Wellbutrin-Sr Tab) 100 mg BID PO 02/23/17 21:00 03/25/17 20:59 02/26/17 09:29 100 MG Cholecalciferol (Vitamin D Tab) 1,000 inter.unit QAM PO 02/24/17 09:00 03/26/17 08:59 02/26/17 09:30 1,000 INTER.UNIT Dorzolamide/ Timolol (Cosopt Op Soln) 1 drops BID OPR 02/23/17 21:00 03/25/17 20:59 02/26/17 09:29 1 DROPS Fluticasone Propionate (Flonase Nasal [place]) 1 sprays BID PRN JENNIFER 02/23/17 18:15 03/25/17 18:14 Furosemide (Lasix Tab) 40 mg DAILY PO 02/24/17 09:00 03/26/17 08:59 02/26/17 09:22 40 MG Gabapentin (Neurontin Cap) 300 mg BID PO 02/23/17 21:00 03/25/17 20:59 02/26/17 09:30 300 MG Levothyroxine Sodium (Synthroid Tab) 25 mcg DAILYBB PO 02/24/17 06:00 03/26/17 06:59 02/26/17 05:37 25 MCG Lorazepam (Ativan Tab) 0.5 mg TID PRN PO 02/23/17 18:15 03/25/17 18:14 02/25/17 16:44 0.5 MG Metoprolol Tartrate (Lopressor Tab) 50 mg BID PO 02/23/17 21:00 03/25/17 20:59 02/26/17 09:28 50 MG Travoprost (Travatan Z) 1 drops HS OPB 02/23/17 21:00 03/25/17 20:59 02/25/17 21:11 1 DROPS Pantoprazole Sodium (Protonix Tab) 40 mg DAILY PRN PO 02/23/17 18:15 03/25/17 18:14 Heparin Sodium (Porcine) (Heparin Sq 5000 Unit/0.5ml) 5,000 unit Q8 SQ 02/23/17 22:00 03/25/17 21:59 02/26/17 14:18 5,000 UNIT Acetaminophen (Tylenol Tab) 650 mg Q4H PRN PO 02/23/17 18:15 03/25/17 18:14 02/24/17 17:16 650 MG Al Hydrox/Mg Hydrox/Simethicone (Maalox Max Susp) 15 ml Q4H PRN PO 02/23/17 18:15 03/25/17 18:14 Magnesium Hydroxide (Milk Of Magnesia Susp) 30 ml Q6H PRN PO 02/23/17 18:15 03/25/17 18:14 Polyethylene (Miralax Powder Packet) 17 gm DAILY PRN PO 02/23/17 18:15 03/25/17 18:14 Ondansetron HCl (Zofran Inj) 4 mg Q6H PRN IV 02/23/17 18:15 03/25/17 18:14 02/24/17 12:52 4 MG Tramadol HCl (Ultram Tab) 50 mg Q4H PRN PO 02/23/17 18:45 03/25/17 18:44 02/26/17 12:09 50 MG Miscellaneous (Iv Fluids Completed) 1 ea PRN PRN N/A 02/23/17 19:15 02/23/18 19:14 Nystatin (Mycostatin Powder) 1 appln QID EXT 02/24/17 09:00 03/26/17 08:59 02/26/17 14:17 1 APPLN Potassium Chloride (Klor-Con Tab) 20 meq Q2D@2100 PO 02/25/17 21:00 03/25/17 19:59 Objective Vital Signs Date Time Temp Pulse Resp B/P (MAP) Pulse Ox O2 Delivery O2 Flow Rate FiO2 02/26/17 15:46 36.3 70 16 142/84 (103) 96 Room Air 02/26/17 09:26 60 135/65 (88) 02/26/17 08:01 91 Room Air 02/26/17 07:59 36.9 74 18 120/70 (87) 91 Room Air 02/26/17 07:45 Room Air 02/26/17 00:00 Room Air 02/25/17 23:30 36.5 71 18 153/85 (107) 96 Room Air Physical Exam General Appearance: WD/WN, no apparent distress Eyes: normal inspection, sclerae normal Respiratory/Chest: chest non-tender, lungs clear, normal breath sounds Cardiovascular: + systolic murmur Abdomen: normal bowel sounds, non tender, soft Extremities: non-tender, no calf tenderness, + pedal edema, + pertinent finding (Back pain with forward flexion, right sided rib pain with palpation) Neurologic/Psychiatric: alert, normal mood/affect, oriented x 3 Laboratory Results Results Past 24 Hours Test 02/26/17 07:09 Range/Units White Blood Count 9.60 4.8-10.8 K/uL Red Blood Count 3.85 4.2-5.4 M/uL Hemoglobin 9.7 12.0-16.0 g/dL Hematocrit 31.7 37-47 % Mean Corpuscular Volume 82.3 80-100 fL Mean Corpuscular Hemoglobin 25.2 25-34 pg Mean Corpuscular Hemoglobin Concent 30.6 32-36 g/dl RDW Standard Deviation 51.3 36.4-46.3 fL RDW Coefficient of Variation 17.0 11.5-14.5 % Platelet Count 170 130-400 K/uL Mean Platelet Volume 10.2 7.4-10.4 fL Assessment and Plan The patient is an 87-year-old female that presents with a worsening compression fracture of her L2 vertebrae. On CT scan and shows a worsening of decompression from 50% on previous CT scan findings to 75% currently. She slipped while trying to pick some of the forearm landed on her back causing a worsening fracture. She did have surgery with Dr. Clements to correct the compression several years ago, but does not want surgery at this time. Patient was seen by orthopedic surgery and this certainly do not recommend surgery, but recommend inpatient physical therapy and pain management. During inpatient stay , the patient has improved physical function and been well-controlled with current pain management. 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 and associated spondylolisthesis - Patient does not wish surgery at this time - Signed off and stated that patient would be appropriate candidate for physical therapy and outpatient pain management - PT/OT Consulted - Inpatient rehab recommended - Referral made to [facility] for rehabilitation - Heat and warm compress for pain 2) Right-sided rib series - X-rays show nondisplaced fractures of ribs 5-7 on the right side - No visible Pneumothorax - Ensure adequate pain control - Heat and warm compress for pain 3) Disposition - Referral sent out by case management to [facility] at this time 4) Leukocytosis - Most likely 2/2 to recent steroid injection received on Friday by Dr. Farias 5) Home Medications - Bupropion 100mg PO BID - Cosopt Opthalmalogic Eye Drops - Fluticasone - Lasix 40mg PO BID - Gabapentin 300mg PO BID - Synthroid 25 mcg PO QAM - Ativan 0.5mg PO TID PRN - Metoprolol 50mg PO BID - Omeprazole 20mg PO Daily - KCl 20 mEq PO Q2D 6) DVT Prophylaxis - Heparin 7) Code Status -Full Resuscitation History Resident Physician Supervision Note: I was present with Dr. Sahu during the history and exam. I discussed the case with the resident and agree with the findings and plan as documented in the note. Any exceptions or clarifications are listed here. Pain well controlled on present regimen, tolerating PT. Rib pain persists but less than previous, able to take deep breaths. Reports no cough, fever, lightheadedness. General Appearance: WD/WN, no apparent distress Respiratory: chest non-tender, lungs clear, normal breath sounds, no respiratory distress Cardiovascular: normal peripheral pulses, regular rate, rhythm, no murmur, other (1+ nontense pitting edema stable from previous) Gastrointestinal: normal bowel sounds, non tender, soft, no organomegaly Assessment/Plan 87 y/o female h/o spinal fusion presents w/ LBP s/p fall Right rib fxs, nondisplaced - continue tramadol for pain control, encourage IS use to prevent PNA LBP s/p fall - ortho aware and recommendations appreciated - tramadol for pain control, continued PT CHF - continue present regimen, monitor for changes Leukocytosis - improved HTN - continue metoprolol Hypothyroidism - continue synthroid
[2017-02-26] MEDS: TRAVOPROST Z 0.004% OPH SOLN 2.5 ML BTL OPB SCH (21:21)
[2017-02-26 22:50] VITALS: BP 154/83; PULSE 76; TEMP 36.7; O2SAT 93
[2017-02-27] MEDS: LEVOTHYROXINE 25 MCG TAB PO SCH (05:54)
[2017-02-27] MEDS: HEPARIN SOD 5000 UNIT/0.5 ML CARP SQ SCH ×2 (05:56→13:53)
[2017-02-27 07:46] VITALS: BP 130/80; PULSE 64; TEMP 36.7; O2SAT 95
[2017-02-27] MEDS: DORZOLAMIDE/TIMOLOL 22.3/6.8MG/ML 10 ML BTL OPR SCH (09:29)
[2017-02-27] MEDS: NYSTATIN POWDER 15GM BTL EXT SCH ×2 (09:29→13:47)
[2017-02-27 09:30] VITALS: BP 125/83; PULSE 73
[2017-02-27] MEDS: METOPROLOL TARTRATE 50 MG TAB PO SCH (09:30)
[2017-02-27] MEDS: BuPROPion SR 100 MG TABCR PO SCH (09:30)
[2017-02-27] MEDS: FUROSEMIDE 40 MG TAB PO SCH (09:30)
[2017-02-27] MEDS: GABAPENTIN 300 MG CAP PO SCH (09:31)
[2017-02-27] MEDS: CHOLECALCIFEROL 1000 INTER.UNIT TAB PO SCH (09:31)
[2017-02-27 09:34] VITALS: O2SAT 95
[2017-02-27] MEDS: TRAMADOL HCL 50 MG TAB PO PRN (09:42)
[2017-02-27] MEDS ORDERED: ULT50X PO (13:53)
--- NOTE | 2017-02-27 13:59 | Discharge Instructions ---
Discharge Instructions Date of Service Feb 27, 2017. Admission Reason for Admission: Gait Abnormality, Lower Back Pain Discharge Discharge Diagnosis / Problem: Compression Fracture Discharge Goals Goal(s): Decrease discomfort, Improve function Activity Recommendations Activity Limitations: per Instructions/Follow-up section Lifting Limitations: gradually increase as tolerated Exercise/Sports Limitations: gradually increase as tolerated . Instructions / Follow-Up Instructions / Follow-Up - You are being discharged to [facility] for physical therapy - You suffered a worsening compression fracture in your back in addition to right sided non-displaced rib fractures 5-7 - Take Tramadol as needed for pain - 50mg (one tab) every 4 hours as needed - Follow up with your Orthopaedic Surgeon Dr. Farias after discharge Current Hospital Diet Patient's current hospital diet: AHA Diet (Heart Healthy) Discharge Diet Recommended Diet: Regular Diet Pending Studies Studies pending at discharge: no Medical Emergencies . Who to Call and When: Medical Emergencies: If at any time you feel your situation is an emergency, please call 911 immediately. . Non-Emergent Contact Non-Emergency issues call your: Primary Care Provider . . "Provider Documentation" section prepared by Jp Sahu. . [employer] Recommendations [employer] Recommendations: PA-c note reviewed. 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 She has no radicular pain, numbness, or weakness of LE's. Her exam of LE's shows intact strength, absent DTRs, non tender hip logroll. I recommend PT and outpatient pain management. She does not desire surgery. VTE Core Measure Inpt VTE Proph given/why not?: Unfractionated heparin SQ
[2017-02-27 14:25] VITALS: BP 125/83; PULSE 73; TEMP 36.7; O2SAT 95
[2017-02-27 15:17] VITALS: BP 125/81; PULSE 69; TEMP 36.7; O2SAT 94
--- NOTE | 2017-02-27 18:59 | Discharge Summary ---
Discharge Summary Date of Service Feb 27, 2017. (Jp Sahu MD) Discharge Summary Admission Date: Feb 23, 2017 at 18:11 Discharge Date: Feb 27, 2017 [facility]charge Disposition: [facility] ([facility]) Principal Diagnosis: Compression Fracture Immunizations: Have You Had Influenza Vaccine: Yes Influenza Vaccine Date: May 18, 2009 History of Tetanus Vaccine?: Unknown History of Pneumococcal: Yes History of Hepatitis B Vaccine: No (Jp Sahu MD) Medication Reconciliation New Medications: Tramadol HCl (Tramadol HCl) 50 Mg Tab 50 MG PO Q4H PRN for Pain for 7 Days, #28 TAB Continued Medications: Bupropion (Wellbutrin Sr) 100 Mg Ertab 100 MG PO BID Cholecalciferol (Vitamin D-3) 1,000 Unit Tab 1000 PO QAM Dorzolamide Hcl-Timolol Maleat (Cosopt Oph) 1 Katey Katey 1 DROPS OPR BID "I TRY TO DO THIS EVERDAY BUT SOMETIMES I DON'T" Fluticasone Propionate (Nasal) (Flonase Allergy Relief) 50 Mcg/Act Spr 1 SPRAY JENNIFER BID PRN for Allergy Symptoms Furosemide (Lasix) 40 Mg Tab 40 MG PO DAILY Gabapentin (Neurontin) 300 Mg Cap 300 MG PO BID Levothyroxine Sodium (Levothyroxine Sodium) 25 Mcg Tab 25 MCG PO QAM Lorazepam (Ativan) 0.5 Mg Tab 0.5 MG PO TID PRN for Anxiety, TAB Metoprolol Tartrate (Lopressor) (Lopressor) 50 Mg Tab 50 MG PO BID Omeprazole (Prilosec) 20 Mg Capcr 20 MG PO DAILY PRN for Acid Reflux Potassium Ext Rel (Klor-Con) 20 Meq Tabcr 20 MEQ PO Q2D Travoprost (Travatan Z) 0.004 % Alexandru 1 DROP OPB HS, ML Discharge Exam Review of Systems: Constitutional: No fever, No chills, No weight loss Respiratory: No cough, No sputum, No wheezing, No shortness of breath Cardiovascular: No chest pain, No palpitations Abdomen: No pain, No nausea, No vomiting, No diarrhea, No constipation Musculoskeletal: + problem reported (back pain, right sided rib pain) Genitourinary - Male: No dysuria Physical Exam: General Appearance: WD/WN, no apparent distress Respiratory/Chest: chest non-tender, lungs clear, normal breath sounds Cardiovascular: regular rate, rhythm, no edema, no gallop Abdomen / GI: normal bowel sounds, non tender, soft Extremities: + pertinent finding (lower back pain with palpation and extreme difficulty with forward flexion. Right sided rib pain with palpation.) Neurologic/Psychiatric: alert, normal mood/affect, oriented x 3 (Jp Sahu MD) Hospital Course Patient is an 87 year old female that presented after a fall on her back and experience intense pain. The fall was mechanical, and occurred while the patient was trying to peanut picker something off of the ground. On arrival to the ED imaging revealed a worsening of her previous compression fracture of her L2 vertebrae. During her admission her pain has been well controlled, but the patient has been unable to get out of bed on her own. It was also revealed that she had fractures of her right ribs 5-7 on chest x-ray. The patient was evaluated by Orthopaedics due to her previous back surgery and expressed that she did not want to have back surgery. Inpatient rehab was the best option based on her functional status and placement was made at [facility] where the patient was previously seen. Total Time Spent: Greater than 30 minutes This includes examination of the patient, discharge planning, medication reconciliation, and communication with other providers. (Jp Sahu MD) Discharge Instructions Please refer to the electronic Patient Visit Report (Discharge Instructions) for additional information. (Jp Sahu MD) Additional Copies To Alecia Garcia C.R.N.P Resident Tracking Resident Involvement: Resident Care Provided Care Provided: Adult [facility] Medicine (Jp Sahu MD) Resident Tracking Resident Involvement: Resident Care Provided Care Provided: [facility] Medicine (Jp Sahu MD) History Resident Physician Supervision Note: I was present with Dr. Sahu during the history and exam. I discussed the case with the resident and agree with the findings and plan as documented in the note. Any exceptions or clarifications are listed here. Pt resting in bed with pain well controlled at present. Significant improvement in pain w/ PT but still having trouble w/ activity (Franko Tom MD) General Appearance: no apparent distress, obese Respiratory: chest non-tender, lungs clear, normal breath sounds, no respiratory distress Cardiovascular: normal peripheral pulses, no murmur, other (1+ pitting b/l stable) (Franko Tom MD) Assessment/Plan 87 y/o female h/o spinal fusion presents w/ LBP s/p fall Right rib fxs, nondisplaced - continue tramadol for pain control, encourage IS use to prevent PNA LBP s/p fall - ortho aware and recommendations appreciated - tramadol for pain control, rec'd further PT post d/c CHF - continue present regimen, at baseline Leukocytosis - improved HTN - continue metoprolol Hypothyroidism - continue synthroid (Franko Tom MD)
== END 2017-02-27 17:05 ==
LOC: C.EDA 14:24 → EDBD 14:24 → C.MSN 18:11 → EDBEDREQSVC 18:22 → EDBEDREQ 18:22 → ENRESERV 18:43
PROVIDERS: ADMIT Internal Medicine; ATTEND Family Medicine
DX: M48.56XA Collapsed vertebra, not elsewhere classified, lumbar region, initial encounter for fracture (principal); S22.31XA Fracture of one rib, right side, initial encounter for closed fracture; W01.198A Fall on same level from slipping, tripping and stumbling with subsequent striking against other object, initial encounter; I50.9 Heart failure, unspecified; I10 Essential (primary) hypertension; E03.9 Hypothyroidism, unspecified; D72.829 Elevated white blood cell count, unspecified; Z98.1 Arthrodesis status; R26.9 Unspecified abnormalities of gait and mobility; K21.9 Gastro-esophageal reflux disease without esophagitis; F41.9 Anxiety disorder, unspecified; F32.9 Major depressive disorder, single episode, unspecified; M19.90 Unspecified osteoarthritis, unspecified site; H40.9 Unspecified glaucoma; Z79.899 Other long term (current) drug therapy